=== PATIENT | female | born 1945 | race Caucasian/White ===

== ENCOUNTER 2019-03-01 20:47 | Inpatient (IN) | payer MEDICARE, OTHER ==
[~2019-03-01] VITALS: Ht 165.1 cm; Wt 71.7 kg
--- NOTE | 2019-03-01 21:30 | NUR ---
Dr. Adams at bedside for MSE.
[2019-03-01] MEDS ORDERED: IV NORMAL SALINE 1000 ML BAG IV ONE (21:45)
[2019-03-01 21:59] LABS: *BILIRUBIN,URIN NEGATIVE (NEGATIVE); *BLOOD, URINE NEGATIVE (NEGATIVE); *CLARITY,URINE SLIGHTLY CLOUDY (CLEAR); *KETONES,URINE 1+ (NEGATIVE); LEUKOCYTE ESTERASE ,URINE NEGATIVE (NEGATIVE); NITRITE, URINE POSITIVE (NEGATIVE); PH,URINE 5.5 (5.0-8.0); UGLUCOSE NEGATIVE (NEGATIVE)
[2019-03-01 22:03] LABS: BASOPHILS # (AUTO) 0.1 K/uL (0.0-8.0); BASOPHILS % (AUTO) 0.8 % (0.0-2.0); EOSINOPHILS # (AUTO) 0.1 K/uL (0.0-0.7); EOSINOPHILS % (AUTO) 0.9 % (0.0-7.0); HEMATOCRIT 42.6 % (31.2-41.9); LYMPHOCYTES # (AUTO) 1.5 K/uL (20.0-40.0); LYMPHOCYTES % (AUTO) 14.4 % (20.5-51.5); MEAN CORPUSCULAR HGB CONC 33 g/dL (32.3-35.6); MEAN CORPUSCULAR VOLUME 87.9 fL (75.5-95.3); MONOCYTES # (AUTO) 0.8 K/uL (2.0-10.0); MONOCYTES % (AUTO) 7.4 % (0.0-11.0); NEUTROPHILS # (AUTO) 8.2 K/uL (1.8-8.9); NEUTROPHILS % (AUTO) 76.5 % (38.5-71.5); PLATELET COUNT (AUTO) 232 K/uL (179-408); RED BLOOD CELL COUNT(AUTO) 4.84 MIL/uL (3.63-4.92); WHITE BLOOD COUNT (AUTO) 10.7 K/uL (3.8-11.8)
[2019-03-01 22:09] LABS: *COLOR,URINE DARK YELLOW (YELLOW)
[2019-03-01 22:10] LABS: CREATININE 0.7 mg/dL (0.6-1.3); POTASSIUM 3.6 mmol/L (3.5-5.1)
--- NOTE | 2019-03-01 22:10 | NUR ---
Pt out of ER for CT.
[2019-03-01 22:11] LABS: BACTERIA,URINE MANY /HPF (NONE SEEN); MUCUS,URINE MODERATE /LPF (0-FEW); SQUAMOUS EPITHELIAL CELL,UR FEW /HPF (NONE SEEN)
[2019-03-01 22:16] LABS: BILIRUBIN,DIRECT 0.2 mg/dL (0.0-0.2); BILIRUBIN,TOTAL 0.9 mg/dL (0.2-1.0); TOTAL PROTEIN, SERUM 8.1 g/dL (6.4-8.2)
--- NOTE | 2019-03-01 22:21 | NUR ---
Pt back to ER from CT.
--- NOTE | 2019-03-01 23:31 | NUR ---
Report given to Jefe SUE Tele.
[2019-03-01] MEDS ORDERED: MAGN400O6 PO (23:53)
[2019-03-01] MEDS ORDERED: NA P133E4 RC (23:53)
[2019-03-01] MEDS ORDERED: METF-440 PO (23:53)
[2019-03-01] MEDS ORDERED: GALA4TAB23 PO (23:53)
[2019-03-01] MEDS ORDERED: ACET325T53 PO (23:53)
[2019-03-01] MEDS ORDERED: CHOL10002 PO (23:53)
[2019-03-01] MEDS ORDERED: BISA10SU61 RC (23:53)
[2019-03-01] MEDS ORDERED: UBID100T7 PO (23:53)
[2019-03-01] MEDS ORDERED: ATOR10TA PO (23:53)
[2019-03-01] MEDS ORDERED: CARB1CAP3 PO (23:53)
[2019-03-01] MEDS ORDERED: CRAN450T9 PO (23:53)
[2019-03-01] MEDS ORDERED: ACET-2154 PO (23:53)
[2019-03-01] MEDS ORDERED: MULT-1188 PO (23:53)
[2019-03-01] MEDS ORDERED: OMEG10006 PO (23:53)
[2019-03-01] MEDS ORDERED: ACET-73 PO (23:53)
[2019-03-01] MEDS ORDERED: VENL37.510 PO (23:53)
[2019-03-02] MEDS ORDERED: DEXTROSE 50% 50 ML DISP.SYRIN IV PRN (00:30)
[2019-03-02] MEDS ORDERED: ONDANSETRON 4 MG/2 ML VIAL IV PRN (00:30)
[2019-03-02] MEDS ORDERED: INSULIN REGULAR, HUMAN 300 UNIT/3 ML VIAL SQ PRN (00:30)
[2019-03-02] MEDS: IV 1/2NS 1000 ML 1,000 ML IV PRN ×2 (00:45→17:42)
--- NOTE | 2019-03-02 01:00 | NUR ---
Pt transported from ER via gurney, accompanied by nurse at around 0020. All belongings noted and accounted for. Pt is in fairly stable condition, verbally responsive but non coherent responses. Slightly anxious but easily reassured and redirected. Physical assessment done, admission orders noted and carried out at this time. Admission process started and finished at this time. IVF running as ordered on R forearm, DVT pumps started. VS taken, temperature slightly elevated 99.5. Cooling measures started. Started on tele sinus rhythm 71 with occasional PVCs. Will continue to monitor.
[2019-03-02 01:52] VITALS: BP 141/67
[2019-03-02] MEDS: ACETAMINOPHEN 325 MG TABLET PO PRN ×2 (02:45→14:19)
--- NOTE | 2019-03-02 02:45 | NUR ---
Temperature rechecked: 100.4. Tylenol given as ordered, and cooling measures continued.
--- NOTE | 2019-03-02 03:30 | NUR ---
Temp rechecked: temperature dropped to 99.3. Cooling measures continued. Will continue to monitor. No signs of any acute distress.
--- NOTE | 2019-03-02 05:00 | NUR ---
Temp rechecked: 98.5. Placed patient in comfortable situation.
[2019-03-02 06:27] VITALS: BP 104/65
[2019-03-02] MEDS: PANTOPRAZOLE SODIUM 40 MG TABLET.DR PO SCH (06:40)
[2019-03-02] MEDS: BLOOD SUGAR DIAGNOSTIC 1 EACH STRIP VI SCH ×2 (06:41→11:33)
[2019-03-02 06:48] LABS: BASOPHILS % (AUTO) 0.4 % (0.0-2.0); EOSINOPHILS % (AUTO) 0.5 % (0.0-7.0); HEMATOCRIT 39.9 % (31.2-41.9); LYMPHOCYTES # (AUTO) 1.4 K/uL (20.0-40.0); LYMPHOCYTES % (AUTO) 14.3 % (20.5-51.5); MEAN CORPUSCULAR HEMOGLOBIN 29.3 uug (24.7-32.8); MEAN CORPUSCULAR HGB CONC 33 g/dL (32.3-35.6); MEAN CORPUSCULAR VOLUME 89.8 fL (75.5-95.3); MONOCYTES # (AUTO) 0.6 K/uL (2.0-10.0); MONOCYTES % (AUTO) 5.9 % (0.0-11.0); NEUTROPHILS # (AUTO) 7.5 K/uL (1.8-8.9); NEUTROPHILS % (AUTO) 78.9 % (38.5-71.5); PLATELET COUNT (AUTO) 196 K/uL (179-408); RED BLOOD CELL COUNT(AUTO) 4.45 MIL/uL (3.63-4.92); WHITE BLOOD COUNT (AUTO) 9.5 K/uL (3.8-11.8)
--- NOTE | 2019-03-02 06:54 | NUR ---
No further events overnight. Sinus rhythm on tele with PVCs 71. Pt in stable condition. Kept comfortable in bed. Needs attended. Fall precautions maintained. Good perineal care provided. Will endorse accordingly.
[2019-03-02 07:02] LABS: BILIRUBIN,TOTAL 1.1 mg/dL (0.2-1.0); CREATININE 0.6 mg/dL (0.6-1.3); PHOSPHOROUS 2.4 mg/dL (2.5-4.9); POTASSIUM 2.9 mmol/L (3.5-5.1); TOTAL PROTEIN, SERUM 7.3 g/dL (6.4-8.2)
[2019-03-02 07:14] LABS: THYROID STIMULATING HORMONE 2.374 mIU/mL (0.358-3.740)
[2019-03-02] MEDS: Z GUARD REMEDY PASTE 57 GM TUBE TOP SCH ×2 (09:00→21:06)
--- NOTE | 2019-03-02 09:00 | NUR ---
RECEIVED IN BED AWAKE MAKES GOOD EYE CONTACT BUT UNABLE TO MAKE NEEDS KNOWN TURNED AND REPOSITIONED Q2H REMAIN ON IVF ORDERED WITH NO S/S OF INFILTERATION ON SITE TELE IS SR WITH NO ECTOPY AT THIS TIME AFEBRILE MADE COMFORTABLE WILL CONTINUE TO OBSERVE.
[2019-03-02 11:49] VITALS: BP 141/81
[2019-03-02] MEDS: POTASSIUM PHOSPHATE MM 7.5 MMOL in IV DEXTROSE 5% 100 ML IV SCH ×2 (12:25→16:20)
[2019-03-02] MEDS ORDERED: FLEET ENEMA 133 ML BOTTLE RC PRN (12:45)
[2019-03-02] MEDS ORDERED: BISACODYL 10 MG SUPP.RECT RC PRN (12:45)
[2019-03-02] MEDS ORDERED: MAGNESIUM HYDROXIDE 30 ML LIQUID UDC PO PRN (12:45)
[2019-03-02] MEDS ORDERED: LEVODOPA PO SCH (13:00)
[2019-03-02] MEDS ORDERED: CARBIDOPA PO SCH (13:00)
[2019-03-02] MEDS ORDERED: [UNRECOGNIZED DRUG - OTHER] PO SCH (13:00)
--- NOTE | 2019-03-02 14:19 | NUR ---
PATIENT NOTED TO BE MOANING MAKING LOUD NOISES CONFUSED AND DISORIENTED UNABLE TO RELATE NEEDS PATIENTS SON IS AT THE BEDSIDE AND STATED THAT PATIENT IS LIKE THIS IN THE PENITENTIARY BUT ANY WAYS I WENT AHEAD AND GAVE HER TYLENOL TURNED AND REPOSITIONED HER MADE HER IN PROGRESS COMFORTABLE WILL CONTINUE TO OBSERVE KPHOS ORDERED WITH NO ADVERSE OR ALLERGIC REACTIONS AT THIS TIME.WILL CONTINUE TO OBSERVE.
[2019-03-02] MEDS: CEFTRIAXONE 1 G in IV DEXTROSE 5% 50 ML IV SCH (15:42)
[2019-03-02 16:10] VITALS: BP 111/62
[2019-03-02] MEDS: CHOLECALCIFEROL 1,000 UNIT TABLET PO SCH (16:20)
[2019-03-02] MEDS: GALANTAMINE 4 MG TABLET PO SCH (16:28)
--- NOTE | 2019-03-02 20:00 | NUR ---
RECEIVED PATIENT ASLEEP IN BED. AROUSABLE TO NAME BUT QUICKLY FALLS BACK ASLEEP. NO S/S OF PAIN OR DISCOMFORT. NO FACIAL GRIMACE NOTED. NO RESP. DISTRESS NOTED. IVF INFUSING WELL TO RIGHT FA #20 GAUGE. VS WNL. ON TELE SR WITH OCCASIONAL PVC'S AND VENTRICULAR BIGEMINY. ON AIR MATTRESS. BED ALARM ON. CALL LIGHT IN REACH. ALL NEEDS ATTENDED. WILL CONTINUE TO MONITOR AND ASSESS.
[2019-03-02 20:25] VITALS: BP 93/47
[2019-03-02] MEDS: LEVODOPA PO SCH (21:00)
[2019-03-02] MEDS: CARBIDOPA PO SCH (21:00)
[2019-03-02] MEDS: [UNRECOGNIZED DRUG - OTHER] PO SCH (21:00)
[2019-03-02] MEDS: ATORVASTATIN 10 MG TABLET PO SCH (21:00)
--- NOTE | 2019-03-02 21:00 | NUR ---
UNABLE TO GIVE PATIENT PO MEDS. PATIENT IS EASILY AROUSABLE BUT QUICKLY FALLS BACK ASLEEP. [employer] NOTIFIED.
[2019-03-03 00:15] VITALS: BP 142/40
[2019-03-03 04:00] VITALS: BP 132/51
[2019-03-03] MEDS: PANTOPRAZOLE SODIUM 40 MG TABLET.DR PO SCH (05:50)
--- NOTE | 2019-03-03 05:50 | NUR ---
PATIENT AWAKE IN BED. REPOSITIONED TO SIDE. MOUTH CARE PROVIDED. ATTEMTED TO GIVE PATIENT SMALL AMOUNT WATER, THICKENED. PATIENT KEPT THICKENED WATER IN MOUTH AND WAS UNABLE TO SWALLOW OR COMPREHEND TO TO SWALLOW WHEN DIRECTED. UNABLE TO FOLLOW DIRECTIONS. ALL NEEDS ATTENDED. WILL CONTINUE TO MONITOR AND ASSESS.
[2019-03-03] MEDS: METFORMIN HCL 500 MG TABLET PO SCH (08:00)
[2019-03-03] MEDS: CARBIDOPA PO SCH ×4 (08:00→21:00)
[2019-03-03] MEDS: LEVODOPA PO SCH ×4 (08:00→21:00)
[2019-03-03] MEDS: [UNRECOGNIZED DRUG - OTHER] PO SCH ×4 (08:00→21:00)
[2019-03-03] MEDS: GALANTAMINE 4 MG TABLET PO SCH ×2 (09:00→16:02)
[2019-03-03] MEDS: OMEGA-3 FATTY ACIDS/FISH OIL CAPSULE PO SCH (09:00)
[2019-03-03] MEDS: CHOLECALCIFEROL 1,000 UNIT TABLET PO SCH ×2 (09:00→16:02)
[2019-03-03] MEDS ORDERED: Medication Not On Formulary EA (Omega-3 Fatty Acids (Omega-3) 1,000 MG) PO SCH (09:00)
--- NOTE | 2019-03-03 09:00 | NUR ---
AM MEDICATIONS NOT GIVEN PATIENT DUE TO THE FACT THAT PATIENT IS UNABLE TO SWALLOW KEEPS FOOD AND FLUID IN HER MOUTH WITH ABSENCE OF GAG REFLEX WILL CONTINUE TO OBSERVE AND INFORM MD
[2019-03-03] MEDS: Z GUARD REMEDY PASTE 57 GM TUBE TOP SCH ×2 (09:28→21:19)
--- NOTE | 2019-03-03 09:57 | NUR ---
PATIENT TAKEN BY BED TO RADIOLOGY DEPT FOR CT HEAD ORDERED AND BACK TO HER ROOM AT THIS TIME.
[2019-03-03] MEDS: MULTIVIT, IRON, MIN NO. 8, FA TABLET PO SCH (10:57)
[2019-03-03 11:10] VITALS: BP 136/50
--- NOTE | 2019-03-03 11:17 | NUR ---
PATIENT CONTINUES TO HAVE DIFFICULTY SWALLOWING SO MEDICATIONS HELD DR YARBROUGH AWARE.
[2019-03-03] MEDS: IV 1/2NS 1000 ML 1,000 ML IV PRN (13:01)
[2019-03-03] MEDS: CEFTRIAXONE 1 G in IV DEXTROSE 5% 50 ML IV SCH (13:22)
[2019-03-03 15:45] VITALS: BP 137/70
--- NOTE | 2019-03-03 16:03 | NUR ---
PATIENT CONTINUES TO BE UNABLE TO SWALLOW OPENS EYES WHEN TOUCHED BUT IS CONFUSED AND DISORIENTED AND UNABLE TO MAKE NEEDS KNOWN ALL ORAL MEDICATIONS HELD AT THIS TIME AND MD IS AWARE SWALLOW EVAL ORDERED.
[2019-03-03 20:00] VITALS: BP 128/66
[2019-03-03] MEDS: ATORVASTATIN 10 MG TABLET PO SCH (21:00)
--- NOTE | 2019-03-03 21:30 | NUR ---
ORAL MEDS NOT GIVEN; FAILED NURSING BEDSIDE SWALLOW TEST. PT WILL SWALLOW EVAL WITH SPEECH THERAPIST TOMORROW
[2019-03-04] VITALS: BP 107/65
[2019-03-04] MEDS: IV 1/2NS 1000 ML 1,000 ML IV PRN ×2 (04:18→21:38)
[2019-03-04 04:30] VITALS: BP 116/56
[2019-03-04 06:50] LABS: BASOPHILS % (AUTO) 0.5 % (0.0-2.0); EOSINOPHILS # (AUTO) 0.1 K/uL (0.0-0.7); EOSINOPHILS % (AUTO) 1.6 % (0.0-7.0); HEMATOCRIT 38.7 % (31.2-41.9); HEMOGLOBIN 12.5 g/dL (10.9-14.3); LYMPHOCYTES # (AUTO) 1.8 K/uL (20.0-40.0); LYMPHOCYTES % (AUTO) 21.6 % (20.5-51.5); MEAN CORPUSCULAR HEMOGLOBIN 28.8 uug (24.7-32.8); MEAN CORPUSCULAR HGB CONC 32 g/dL (32.3-35.6); MEAN CORPUSCULAR VOLUME 89.3 fL (75.5-95.3); MONOCYTES # (AUTO) 0.7 K/uL (2.0-10.0); MONOCYTES % (AUTO) 8.3 % (0.0-11.0); NEUTROPHILS # (AUTO) 5.6 K/uL (1.8-8.9); PLATELET COUNT (AUTO) 192 K/uL (179-408); RED BLOOD CELL COUNT(AUTO) 4.33 MIL/uL (3.63-4.92); WHITE BLOOD COUNT (AUTO) 8.3 K/uL (3.8-11.8)
[2019-03-04 06:54] LABS: CREATININE 0.6 mg/dL (0.6-1.3); PHOSPHOROUS 2.9 mg/dL (2.5-4.9)
--- NOTE | 2019-03-04 06:58 | NUR ---
PT RESTED WELL IN BETWEEN CARE; NO ACUTE DISTRESS; INCONTINENCE CARE DONE; REPOSITIONED Q2H; PT HAD A BIG BM; SAFETY MAINTAINED; CONTINUE TO MONITOR; CONTINUE PLAN OF CARE.
[2019-03-04] MEDS: PANTOPRAZOLE SODIUM 40 MG TABLET.DR PO SCH (07:00)
--- NOTE | 2019-03-04 07:15 | NUR ---
RECEIVED IN BED ASLEEP WITH EYES CLOSED OPENS EYES WHEN TOUCHED BUT IS UNABLE TO VERBALISE CONFUSED AND DISORIENTED AT THIS TIME ALL NEEDS ANTICIPATED AND SATISFIED TOTALLY DEPENDENT FOR ALL ADL ON ROOM AIR WITH NO SHORTNESS OF BREATH TURNED AND REPOSITIONED Q2H MADE COMFORTABLE AND WILL CONTINUE TO OBSERVE AND PROVIDE SAFE AND THERAPEUTIC ENVIRONMENT AT ALL TIMES.
[2019-03-04] MEDS: LEVODOPA PO SCH ×4 (08:00→20:44)
[2019-03-04] MEDS: METFORMIN HCL 500 MG TABLET PO SCH (08:00)
[2019-03-04] MEDS: [UNRECOGNIZED DRUG - OTHER] PO SCH ×4 (08:00→20:44)
[2019-03-04] MEDS: CARBIDOPA PO SCH ×4 (08:00→20:44)
[2019-03-04] MEDS: Z GUARD REMEDY PASTE 57 GM TUBE TOP SCH ×2 (08:08→21:25)
[2019-03-04] MEDS: CHOLECALCIFEROL 1,000 UNIT TABLET PO SCH ×2 (08:08→16:14)
[2019-03-04] MEDS: GALANTAMINE 4 MG TABLET PO SCH ×2 (08:08→16:14)
[2019-03-04] MEDS: OMEGA-3 FATTY ACIDS/FISH OIL CAPSULE PO SCH (08:08)
--- NOTE | 2019-03-04 08:08 | NUR ---
PATIENT IS STILL NOT SWALLOWING WHEN APPLE SAUCE IN PLACED INTO HER MOUTH HAS ABSENCE OF GAG REFLEX UNABLE TO SWALLOW SO MEDICATIONS HELD AT THIS TIME
[2019-03-04] MEDS: MULTIVIT, IRON, MIN NO. 8, FA TABLET PO SCH (10:22)
[2019-03-04] MEDS: POTASSIUM CHLORIDE 50 ML IV SCH ×2 (10:54→12:00)
[2019-03-04 11:30] VITALS: BP 115/61
[2019-03-04] MEDS: ACETAMINOPHEN 650 MG SUPP.RECT RC PRN ×2 (11:34→21:47)
--- NOTE | 2019-03-04 11:39 | NUR ---
IV SITE INFILTERATED REMOVED AND RESTARTED AT LEFT HAND GAUGE 20 WITH ONE ATTEMPT CONTINUE ON POTASSIUM ORDERED LEVEL TODAY IS 3.0 PATIENT MEDICATED WITH TYLENOL PATIENT IS MOANING RESTLESS TURNED AND REPOSITIONED PATIENT IS AWAKE ANS IS UNABLE TO MAKE HER NEEDS KNOWN AND UNABLE TO REDIRECT AT THIS TIME WILL CONTINUE TO OBSERVE
[2019-03-04] MEDS: CEFTRIAXONE 1 G in IV DEXTROSE 5% 50 ML IV SCH (13:26)
--- NOTE | 2019-03-04 13:29 | NUR ---
WOUND CARE CONSULT: PT PRESENTS WITH RASH TO BUTTOCKS, PRESENT ON ADMISSION. RECOMMENDATIONS MADE FOR SKIN CARE AND PROTECTION. DISCUSSED WITH NURSING STAFF. WILL SEE PRN. PT ON FIRST STEP [facility]. CURRENT MARIFER SCORE IS 12. Addendum: 03/04/19 at 1330 by MITESH AVALOS RN Amended: Links added.
--- NOTE | 2019-03-04 14:00 | NUR ---
PATIENT SEEN AND EXAMINED BY SLT FOR SWALLOW EVAL AND SHE STATED THAT PATIENT IS NOT ABLE TO SWALLOW AT RISKS FOR ASPIRATION AT THIS TIME DR YARBROUGH NOTIFIED
[2019-03-04 16:00] VITALS: BP 131/60
--- NOTE | 2019-03-04 16:16 | NUR ---
DR YARBROUGH HERE SEEN PATIENT PATIENTS SON WAS AT THE BEDSIDE MD SPOKE WITH HIM AT LENGTH AND EXPLAINED TO HIM THE PLAN OF CARE AND PATIENT BEING AT RISKS FOR ASPIRATION SO THE PLAN IS THAT DR CHIN WILL CALL THE GI DOCTOR FOR EVALUATION OF GT PLACEMENT THE SON STATED HE IS ON BOARD WILL CALL HIM FOR CONSCENT WHEN ORDER IS WRITTEN.
[2019-03-04] MEDS: CLOTRIMAZOLE 1% CREAM 30 GM TUBE TOP SCH (16:33)
--- NOTE | 2019-03-04 19:40 | NUR ---
RECEIVED PATIENT AWAKE IN BED. PATIENT NONVERBAL, AO X 1. IN NO DISTRESS OR PAIN AT THE MOMENT. PER DAY SHIFT NURSE, PATIENT IS TO BE NPO PER SPEECH THERAPIST, PATIENT FAILED SWALLOW EVAL. PATIENT WILL BE KEPT NPO. SAFETY PROTOCOLS IN PLACE. WILL CONTINUE TO MONITOR.
[2019-03-04 20:30] VITALS: BP 130/69
[2019-03-04] MEDS: ATORVASTATIN 10 MG TABLET PO SCH (20:44)
--- NOTE | 2019-03-04 21:10 | NUR ---
DR. PLASCENCIA CALLED RE: OBTAINING INFORMED CONSENT FOR PROCEDURE EGD WITH PEG TUBE PLACEMENT. PATIENT TO BE NPO AFTER MIDNIGHT. PATIENT TO UNDERGO PROCEDURE AT 0730 IN THE MORNING.
[2019-03-04] MEDS: LORAZEPAM 2 MG/1 ML VIAL IV PRN (22:59)
[2019-03-05] VITALS (7 sets, daily range): BP systolic 127–170; BP diastolic 61–75
--- NOTE | 2019-03-05 05:28 | NUR ---
PATIENT'S SON SANDEE CONTACTED RE: INFORMED CONSENT AROUND 2200 LAST NIGHT. CALLED SEVERAL TIMES AND LEFT VOICEMAIL. STILL NO CALL BACK. PHONE NUMBER IS .
[2019-03-05] MEDS: ACETAMINOPHEN 650 MG SUPP.RECT RC PRN (05:47)
[2019-03-05] MEDS: LORAZEPAM 2 MG/1 ML VIAL IV PRN ×3 (06:08→20:56)
[2019-03-05] MEDS: PANTOPRAZOLE SODIUM 40 MG TABLET.DR PO SCH (06:50)
[2019-03-05] MEDS ORDERED: FENTANYL CITRATE 100 MCG/2 ML AMPUL ONE (07:02)
--- NOTE | 2019-03-05 07:30 | NUR ---
PATIENT WAS PICKED UP BY BED AT THIS TIME TO OR FOR GT INSERTION ORDERED NO DISTRESS AT THIS TIME.
[2019-03-05] MEDS ORDERED: LIDOCAINE HCL-MPF 1% 5 ML VIAL ONE (07:39)
[2019-03-05] MEDS ORDERED: CEFAZOLIN 1 G VIAL IM ONE (07:54)
[2019-03-05] MEDS ORDERED: PROPOFOL 200 MG/20 ML BOTTLE IV ONE (07:54)
[2019-03-05] MEDS ORDERED: IV NORMAL SALINE 1000 ML BAG IV ONE (07:54)
[2019-03-05] MEDS ORDERED: IRR STERIL WATER FOR IRR 1000 ML BOTTLE IR ONE (07:54)
[2019-03-05] MEDS: METFORMIN HCL 500 MG TABLET PO SCH (08:00)
[2019-03-05] MEDS: [UNRECOGNIZED DRUG - OTHER] PO SCH ×4 (08:00→21:00)
[2019-03-05] MEDS: CARBIDOPA PO SCH ×4 (08:00→21:00)
[2019-03-05] MEDS: LEVODOPA PO SCH ×4 (08:00→21:00)
[2019-03-05] MEDS: OMEGA-3 FATTY ACIDS/FISH OIL CAPSULE PO SCH (08:18)
[2019-03-05] MEDS: Z GUARD REMEDY PASTE 57 GM TUBE TOP SCH ×2 (08:19→22:49)
[2019-03-05] MEDS: GALANTAMINE 4 MG TABLET PO SCH (08:19)
[2019-03-05] MEDS: CHOLECALCIFEROL 1,000 UNIT TABLET PO SCH (08:19)
[2019-03-05] MEDS: CLOTRIMAZOLE 1% CREAM 30 GM TUBE TOP SCH ×2 (08:19→16:48)
[2019-03-05] MEDS ORDERED: IV 1/2NS 1000 ML 1,000 ML IV PRN (08:30)
--- NOTE | 2019-03-05 08:45 | NUR ---
PATIENT RETURNED FROM PACU AWAKE ATTEMPTS TO TALK BUT IS UNCLEAR AND INCOHERENT ON ROOM AIR WITH NO SOB NOTED S/P GT INSERTION WITH ABD BINDER IN PLACE NO S/S OF BLEEDING AT THIS TIME IVF CHANGED TO NS ORDERED CAFE HELPER NOTIFIED RE NEED RECS ON TUBE FEEDING WILL CONTINUE TO OBSERVE.
[2019-03-05] MEDS: IV NS 1000 ML 1,000 ML IV PRN ×2 (08:57→15:02)
[2019-03-05] MEDS ORDERED: MAGNESIUM HYDROXIDE 30 ML LIQUID UDC GT PRN (09:11)
[2019-03-05 09:23] LABS: ALANINE AMINOTRANSFERASE 17 U/L (14-59); ALKALINE PHOSPHATASE 58 U/L (50-136); ASPARTATE AMINOTRANSFERASE 24 U/L (15-37); BILIRUBIN,TOTAL 0.7 mg/dL (0.2-1.0); CARBON DIOXIDE 25 mmol/L (21-32); CHLORIDE 105 mmol/L (98-107); CREATININE 0.6 mg/dL (0.6-1.3); GLUCOSE 64 mg/dL (74-106); MAGNESIUM 1.9 mg/dL (1.8-2.4); POTASSIUM 3.3 mmol/L (3.5-5.1); UREA NITROGEN, BLOOD 9 mg/dL (7-18)
[2019-03-05 09:31] LABS: BASOPHILS # (AUTO) 0.1 K/uL (0.0-8.0); BASOPHILS % (AUTO) 0.7 % (0.0-2.0); EOSINOPHILS # (AUTO) 0.2 K/uL (0.0-0.7); EOSINOPHILS % (AUTO) 3.3 % (0.0-7.0); HEMATOCRIT 40.3 % (31.2-41.9); LYMPHOCYTES # (AUTO) 1.2 K/uL (20.0-40.0); LYMPHOCYTES % (AUTO) 15.9 % (20.5-51.5); MEAN CORPUSCULAR HEMOGLOBIN 29.1 uug (24.7-32.8); MEAN CORPUSCULAR HGB CONC 32 g/dL (32.3-35.6); MEAN CORPUSCULAR VOLUME 89.9 fL (75.5-95.3); MONOCYTES # (AUTO) 0.5 K/uL (2.0-10.0); MONOCYTES % (AUTO) 6.3 % (0.0-11.0); NEUTROPHILS # (AUTO) 5.5 K/uL (1.8-8.9); NEUTROPHILS % (AUTO) 73.8 % (38.5-71.5); PLATELET COUNT (AUTO) 199 K/uL (179-408); RED BLOOD CELL COUNT(AUTO) 4.48 MIL/uL (3.63-4.92); WHITE BLOOD COUNT (AUTO) 7.5 K/uL (3.8-11.8)
[2019-03-05] MEDS: ACETAMINOPHEN 325 MG TABLET PO PRN ×2 (11:03→18:13)
[2019-03-05] MEDS: MULTIVIT, IRON, MIN NO. 8, FA TABLET GT SCH (11:03)
--- NOTE | 2019-03-05 12:10 | NUR ---
TUBE FEEDING RECS RECEIVED FROM THE [employer]RARY CLERK AND NOTED AWAITING FOR DIETARY TO SEND THE GLUCERNA.
[2019-03-05] MEDS: GLUCERNA 1.2 1000ML LIQUID GT PRN (12:39)
--- NOTE | 2019-03-05 13:07 | NUR ---
DR REJI MCCARTNEY HERE AWARE OF POTASSIUM LEVEL AT 3.3 WITH REPLACEMENT ORDER AND NOTED.
[2019-03-05] MEDS ORDERED: POTASSIUM CHLORIDE 20 MEQ POWDER PACKET GT ONE (13:15)
[2019-03-05] MEDS: CEFTRIAXONE 1 G in IV DEXTROSE 5% 50 ML IV SCH (13:30)
--- NOTE | 2019-03-05 13:41 | NUR ---
PATIENT IS VERY RESTLESS AND AGITATED MOANING AND MAKING LOUD NOISES TURNED AND REPOSITIONED UNABLE TO REDIRECT GT FEEDINGS IN PROGRESS AT 10 ML/HR NO NAUSEA OR VOMITING AT THIS TIME PATIENT GIVEN ATIVAN 0.5 MG ORDERED BUT INADVERTENTLY PUT 1 MG GIVEN AND ONE MG WASTED BUT 1.5 MG WAS WASTED CALLED THE PHARMACY NOTIFIED THEM AND THEY STATED UNABLE TO FIX IN THE PIXSIS THAT I SHOULD WRITE NOTES TO EXPLAIN WHAT HAPPENED
[2019-03-05] MEDS: CHOLECALCIFEROL 1,000 UNIT TABLET GT SCH (16:46)
[2019-03-05] MEDS: GALANTAMINE 4 MG TABLET GT SCH (16:47)
--- NOTE | 2019-03-05 18:14 | NUR ---
PATIENT IS MOANING RESTLESS UNABLE TO REDIRECT AND PATIENT IS UNABLE TO RELAY NEEDS MEDICATED WITH TYLENOL AT THIS TIME WILL OBSERVE GT FEEDING IN PROGRESS TOLERATING WELL.
[2019-03-05] MEDS ORDERED: ATORVASTATIN 10 MG TABLET GT SCH ×2 (21:00)
[2019-03-05] MEDS: ATORVASTATIN 20 MG TABLET GT SCH (21:00)
[2019-03-05] MEDS: METOPROLOL TARTRATE 25 MG TABLET GT SCH (22:00)
--- NOTE | 2019-03-05 22:00 | NUR ---
RECEIVED ORDER FOR METOPROLOL Q. [address] REJI MCCARTNEY REGARDING PATIENT'S HIGH BLOOD PRESSURE 170/68. HOWEVER, WHEN BLOOD PRESSURE WAS TAKEN PRIOR TO ADMINISTERING THE DRUG, BLOOD PRESSURE WAS NORMALIZED TO 122/79.
--- NOTE | 2019-03-05 22:30 | NUR ---
AILYN TAVERA NP, ORDERED FOR CTA BRAIN AND CTA CAROTIDS FOR THIS TIME. CONTACTED DR. MAN AND HE STATED TO HOLD OFF ON THE IMAGING, HE THINKS IT MIGHT NOT BE NECESSARY; HE WILL SPEAK WITH JOVANA TAVERA AND CLARIFY.
--- NOTE | 2019-03-05 23:30 | NUR ---
CONTACED DR. REJI MCCARTNEY REGARDING PAIN MEDICATION. PATIENT HAS INCONSOLABLE YELLS, SEEMINGLY TO BE FROM PAIN. [place] 5-325 Q 6 HRS ORDERED PER MD.
[2019-03-05] MEDS: HYDROCODONE/APAP 5-325MG TABLET GT PRN (23:37)
[2019-03-06] MEDS: HYDROCODONE/APAP 5-325MG TABLET GT PRN (05:00)
[2019-03-06] MEDS: IV NS 1000 ML 1,000 ML IV PRN (05:08)
[2019-03-06] MEDS: PANTOPRAZOLE ORAL SUSPENSION 40 MG SUSPDR.PKT GT SCH (06:03)
[2019-03-06 06:13] VITALS: BP 154/68
[2019-03-06] MEDS ORDERED: METFORMIN HCL 500 MG TABLET GT SCH (08:00)
[2019-03-06] MEDS: GALANTAMINE 4 MG TABLET GT SCH ×2 (08:02→16:07)
[2019-03-06] MEDS: [UNRECOGNIZED DRUG - OTHER] PO SCH ×4 (08:02→20:28)
[2019-03-06] MEDS: CARBIDOPA PO SCH ×4 (08:02→20:28)
[2019-03-06] MEDS: LEVODOPA PO SCH ×4 (08:02→20:28)
[2019-03-06] MEDS: OMEGA-3 FATTY ACIDS/FISH OIL CAPSULE GT SCH (08:03)
[2019-03-06] MEDS: CHOLECALCIFEROL 1,000 UNIT TABLET GT SCH ×2 (08:03→16:06)
[2019-03-06] MEDS: METOPROLOL TARTRATE 25 MG TABLET GT SCH ×2 (08:04→20:27)
[2019-03-06] MEDS: CLOTRIMAZOLE 1% CREAM 30 GM TUBE TOP SCH ×2 (08:04→16:07)
[2019-03-06] MEDS: Z GUARD REMEDY PASTE 57 GM TUBE TOP SCH ×2 (08:05→20:29)
[2019-03-06] MEDS ORDERED: IV NORMAL SALINE 250 ML IV ONE (10:00)
[2019-03-06] MEDS ORDERED: SWABABLE VALVE TRANSFER SET EA MC ONE (10:00)
[2019-03-06] MEDS ORDERED: IOHEXOL 350 100 ML INFUS..BTL ONE (10:00)
[2019-03-06 11:09] VITALS: BP 133/46
[2019-03-06] MEDS: MULTIVIT, IRON, MIN NO. 8, FA TABLET GT SCH (11:11)
[2019-03-06] MEDS: ACETAMINOPHEN 325 MG TABLET PO PRN (11:11)
[2019-03-06] MEDS: CEFTRIAXONE 1 G in IV DEXTROSE 5% 50 ML IV SCH (13:39)
[2019-03-06 15:03] VITALS: BP 102/52
--- NOTE | 2019-03-06 19:20 | NUR ---
Received patient lying in bed. Asleep, arouse to tactile stimuli. Non-verbal, only moans. No signs or symptoms of pain or SOB. Afebrile at this time GT feeding tolerating at this time. HOB elevated. Safety measure initiated. Continue to monitor.
[2019-03-06 20:00] VITALS: BP 100/50
[2019-03-06] MEDS: ATORVASTATIN 20 MG TABLET GT SCH (20:27)
[2019-03-07] MEDS: GLUCERNA 1.2 1000ML LIQUID GT PRN (02:10)
[2019-03-07 05:27] VITALS: BP 122/54
[2019-03-07] MEDS: ACETAMINOPHEN 325 MG TABLET PO PRN (05:55)
[2019-03-07] MEDS: PANTOPRAZOLE ORAL SUSPENSION 40 MG SUSPDR.PKT GT SCH (06:00)
--- NOTE | 2019-03-07 06:18 | NUR ---
Patient asleep, arouse to tactile stimuli, Opens her eyes and moans a little but mainly non-verbal. No signs or symptoms of pain or SOB. GT feeding and flushing tolerated well. HOB kept elevated. Safety measure maintained.
[2019-03-07 06:30] LABS: BASOPHILS % (AUTO) 0.2 % (0.0-2.0); EOSINOPHILS % (AUTO) 0.2 % (0.0-7.0); HEMATOCRIT 37.2 % (31.2-41.9); LYMPHOCYTES # (AUTO) 0.8 K/uL (20.0-40.0); LYMPHOCYTES % (AUTO) 4.5 % (20.5-51.5); MEAN CORPUSCULAR HEMOGLOBIN 28.8 uug (24.7-32.8); MEAN CORPUSCULAR HGB CONC 32 g/dL (32.3-35.6); MEAN CORPUSCULAR VOLUME 89.6 fL (75.5-95.3); MONOCYTES # (AUTO) 1.6 K/uL (2.0-10.0); MONOCYTES % (AUTO) 9.1 % (0.0-11.0); NEUTROPHILS # (AUTO) 15.6 K/uL (1.8-8.9); PLATELET COUNT (AUTO) 184 K/uL (179-408); RED BLOOD CELL COUNT(AUTO) 4.15 MIL/uL (3.63-4.92); WHITE BLOOD COUNT (AUTO) 18.1 K/uL (3.8-11.8)
[2019-03-07 06:35] LABS: CREATININE 0.7 mg/dL (0.6-1.3); POTASSIUM 3.6 mmol/L (3.5-5.1)
--- NOTE | 2019-03-07 07:30 | NUR ---
Received patient in bed, Non verbal. No signs of distress noted. No SOB. No signs of Pain/discomfort. Afebrile, 98.7F. Gtube intact and patent. Kept comfortable. Will continue to monitor.
[2019-03-07] MEDS: LEVODOPA PO SCH ×4 (08:07→21:14)
[2019-03-07] MEDS: CARBIDOPA PO SCH ×4 (08:07→21:14)
[2019-03-07] MEDS: [UNRECOGNIZED DRUG - OTHER] PO SCH ×4 (08:07→21:14)
[2019-03-07] MEDS: OMEGA-3 FATTY ACIDS/FISH OIL CAPSULE GT SCH (08:16)
[2019-03-07] MEDS: CHOLECALCIFEROL 1,000 UNIT TABLET GT SCH ×2 (08:16→16:38)
[2019-03-07] MEDS: GALANTAMINE 4 MG TABLET GT SCH ×2 (08:17→16:38)
[2019-03-07] MEDS: METOPROLOL TARTRATE 25 MG TABLET GT SCH ×2 (09:00→21:00)
[2019-03-07] MEDS: CLOTRIMAZOLE 1% CREAM 30 GM TUBE TOP SCH ×2 (09:17→17:01)
[2019-03-07] MEDS: Z GUARD REMEDY PASTE 57 GM TUBE TOP SCH ×2 (09:17→21:13)
[2019-03-07] MEDS: HYDROCODONE/APAP 5-325MG TABLET GT PRN ×2 (09:55→16:39)
[2019-03-07] MEDS: MULTIVIT, IRON, MIN NO. 8, FA TABLET GT SCH (11:03)
[2019-03-07 11:06] VITALS: BP 98/56
[2019-03-07] MEDS: CEFTRIAXONE 1 G in IV DEXTROSE 5% 50 ML IV SCH (13:45)
[2019-03-07 14:42] LABS: *BILIRUBIN,URIN 1+ (NEGATIVE); *BLOOD, URINE NEGATIVE (NEGATIVE); *COLOR,URINE AMBER (YELLOW); *KETONES,URINE TRACE (NEGATIVE); LEUKOCYTE ESTERASE ,URINE NEGATIVE (NEGATIVE); NITRITE, URINE NEGATIVE (NEGATIVE); UGLUCOSE NEGATIVE (NEGATIVE)
[2019-03-07 14:49] LABS: *CLARITY,URINE HAZY (CLEAR)
[2019-03-07 14:50] LABS: BACTERIA,URINE MODERATE /HPF (NONE SEEN); RBC,URINE 0-3 /HPF (0-3); SQUAMOUS EPITHELIAL CELL,UR MODERATE /HPF (NONE SEEN)
[2019-03-07 14:51] LABS: MUCUS,URINE MANY /LPF (0-FEW)
[2019-03-07 15:04] VITALS: BP 106/53
--- NOTE | 2019-03-07 18:37 | NUR ---
Patient in bed, open eyes. No signs of distress noted. No SOB. Pain medications given as ordered. GTube intact and patent, Gtube feeding tolerated well. No Nausea/vomiting noted. RP changed the Code status to DNR. kept clean and comfortable. Will endorse to oncoming Nurse.
[2019-03-07] MEDS: ATORVASTATIN 20 MG TABLET GT SCH (21:13)
[2019-03-07] MEDS ORDERED: VANCOMYCIN IV 1 G in PREMIXED 0 EACH IV SCH (21:15)
[2019-03-07] MEDS ORDERED: CEFEPIME HCL 1 G in IV DEXTROSE 5% 50 ML IV SCH (21:15)
[2019-03-07] MEDS ORDERED: CEFEPIME HCL 1 G VIAL ONE (22:55)
[2019-03-07] MEDS ORDERED: VANCOMYCIN 1000 MG VIAL ONE (22:55)
--- NOTE | 2019-03-08 | NUR ---
Received report from outgoing nurse around 8960. Pt is currently sleeping with no signs of distress. Sleeping, arousable but non verbal. Tube feeding ongoing at 60cc/hr. No signs of aspiration noted. Head kept elevated. Air Mattress in use, and working well. DVT pumps on. Pt turned and right side offloaded with pillow. Will continue to monitor.
[2019-03-08] MEDS: GLUCERNA 1.2 1000ML LIQUID GT PRN (02:01)
[2019-03-08 04:00] VITALS: BP 154/61
--- NOTE | 2019-03-08 04:00 | NUR ---
Glucerna 1.2 Feeding increased rate to 65cc/hr as ordered. No signs of aspiration noted. No residual volume noted.
[2019-03-08] MEDS: PANTOPRAZOLE ORAL SUSPENSION 40 MG SUSPDR.PKT GT SCH (06:18)
[2019-03-08 06:37] LABS: BASOPHILS # (AUTO) 0.1 K/uL (0.0-8.0); BASOPHILS % (AUTO) 0.4 % (0.0-2.0); CARBON DIOXIDE 29 mmol/L (21-32); CHLORIDE 102 mmol/L (98-107); CREATININE 0.5 mg/dL (0.6-1.3); EOSINOPHILS # (AUTO) 0.1 K/uL (0.0-0.7); EOSINOPHILS % (AUTO) 0.8 % (0.0-7.0); GLUCOSE 152 mg/dL (74-106); HEMATOCRIT 34.9 % (31.2-41.9); HEMOGLOBIN 11.6 g/dL (10.9-14.3); LYMPHOCYTES % (AUTO) 6.3 % (20.5-51.5); MEAN CORPUSCULAR HEMOGLOBIN 28.8 uug (24.7-32.8); MEAN CORPUSCULAR HGB CONC 33 g/dL (32.3-35.6); MEAN CORPUSCULAR VOLUME 86.4 fL (75.5-95.3); MONOCYTES % (AUTO) 6.6 % (0.0-11.0); NEUTROPHILS # (AUTO) 13.3 K/uL (1.8-8.9); NEUTROPHILS % (AUTO) 85.9 % (38.5-71.5); PLATELET COUNT (AUTO) 184 K/uL (179-408); POTASSIUM 3.8 mmol/L (3.5-5.1); RED BLOOD CELL COUNT(AUTO) 4.03 MIL/uL (3.63-4.92); UREA NITROGEN, BLOOD 13 mg/dL (7-18); WHITE BLOOD COUNT (AUTO) 15.5 K/uL (3.8-11.8)
[2019-03-08] MEDS: GALANTAMINE 4 MG TABLET GT SCH ×2 (08:17→16:52)
[2019-03-08] MEDS: CHOLECALCIFEROL 1,000 UNIT TABLET GT SCH ×2 (08:17→16:52)
[2019-03-08] MEDS: CARBIDOPA PO SCH ×4 (08:17→20:45)
[2019-03-08] MEDS: OMEGA-3 FATTY ACIDS/FISH OIL CAPSULE GT SCH (08:17)
[2019-03-08] MEDS: LEVODOPA PO SCH ×4 (08:17→20:45)
[2019-03-08] MEDS: [UNRECOGNIZED DRUG - OTHER] PO SCH ×4 (08:17→20:45)
[2019-03-08] MEDS: CEFEPIME HCL 1 G in IV DEXTROSE 5% 50 ML IV SCH ×2 (08:33→20:29)
[2019-03-08] MEDS: METOPROLOL TARTRATE 25 MG TABLET GT SCH ×2 (08:41→20:45)
[2019-03-08] MEDS: CLOTRIMAZOLE 1% CREAM 30 GM TUBE TOP SCH ×2 (08:49→16:53)
[2019-03-08] MEDS: Z GUARD REMEDY PASTE 57 GM TUBE TOP SCH ×2 (08:49→20:30)
--- NOTE | 2019-03-08 09:50 | NUR ---
CLINICAL PHARMACY NOTE: VANCOMYCIN PHARMACY TO DOSE Subjective: To start vancomycin in this 73 y/o female for indication of "documented infection" Objective: weight 71kg height 165cm BUN/Scr 13/0.5 wbc 15.5 temp 98.9 1gm vanco given 03/08 @ ~0000 Assessment/Plan As renal function appears stable, will start vancomycin regimen of 1gm q11hr for estimated trough of 15.7, second dose today at 1100. Will check trough before 4th scheduled dose (not ordered yet). Will follow
[2019-03-08] MEDS: VANCOMYCIN IV 1,000 MG in IV DEXTROSE 5% 250 ML IV SCH ×2 (11:28→21:34)
[2019-03-08] MEDS: MULTIVIT, IRON, MIN NO. 8, FA TABLET GT SCH (11:28)
[2019-03-08 11:29] VITALS: BP 131/61
--- NOTE | 2019-03-08 11:29 | NUR ---
pt is running fever 101.[address] pathak made aware per orders blood cs orders
[2019-03-08] MEDS: METFORMIN HCL 500 MG TABLET GT SCH (12:57)
[2019-03-08] MEDS: ACETAMINOPHEN 325 MG TABLET PO PRN ×2 (13:00→20:47)
--- NOTE | 2019-03-08 13:05 | NUR ---
pt is resting in her bed family is at bed side
[2019-03-08 15:24] VITALS: BP 118/64
[2019-03-08 19:47] VITALS: BP 109/61
--- NOTE | 2019-03-08 20:00 | NUR ---
RECEIVED PATIENT ASLEEP IN BED. AROUSABLE. ALERT TO SELF ONLY. NO S/S OF PAIN OR DISCOMFORT. ON O2 2.5L, NO RESP. DISTRESS NOTED. VSS. GT FEEDING INFUSING WELL. NO RESIDUAL NOTED. H/L INTACT AND PATENT. AFEBRILE. VS WNL. ON AIR MATTRESS. CALL LIGHT IN REACH. ALL NEEDS ATTENDED. WILL CONTINUE TO MONITOR AND ASSESS.
[2019-03-08] MEDS: ATORVASTATIN 20 MG TABLET GT SCH (20:45)
--- NOTE | 2019-03-08 21:00 | NUR ---
PIKE CATHETER INSERTED ORDERED PER NERA-HIMS CODER. UA AND CULTURE SENT ORDERED. ALL NEEDS ATTENDED.
[2019-03-08 21:36] LABS: *BILIRUBIN,URIN NEGATIVE (NEGATIVE); *CLARITY,URINE CLEAR (CLEAR); *KETONES,URINE NEGATIVE (NEGATIVE); *UROBILINOGEN,URINE 0.2 E.U./dl (NORMAL); LEUKOCYTE ESTERASE ,URINE NEGATIVE (NEGATIVE); NITRITE, URINE NEGATIVE (NEGATIVE); PH,URINE 5.5 (5.0-8.0); UGLUCOSE NEGATIVE (NEGATIVE)
[2019-03-08] MEDS: FLUCONAZOLE 100 MG TABLET PO SCH (21:36)
[2019-03-08 21:55] LABS: *BLOOD, URINE TRACE (NEGATIVE)
[2019-03-08 21:56] LABS: *COLOR,URINE LIGHT YELLOW (YELLOW); SQUAMOUS EPITHELIAL CELL,UR FEW /HPF (NONE SEEN); WBC,URINE 0-3 /HPF (0-3)
--- NOTE | 2019-03-08 23:00 | NUR ---
Received report from outgoing RN, patient stable. Feeding running as ordered. IV ATB running as ordered. Pt appears slightly anxious, noted with moaning. Able to redirect but does again. Will administer Ativan PRN. Rashaad-pharyngeal suctioning also done, whitish secretions very little amount. Pt responds to name, and touch. Also answers yes or no, but not fully verbal.
[2019-03-08] MEDS: LORAZEPAM 2 MG/1 ML VIAL IV PRN (23:30)
--- NOTE | 2019-03-09 02:00 | NUR ---
Haritha Mitchell PRIVATE CLIENT ADVISOR notified of patient's coughing episodes and continued on/off moaning. New orders received for breathing tx. Noted and carried out.
[2019-03-09] MEDS: IPRATROPIUM BROMIDE 0.5 MG/2.5 ML NEBU NEB PRN ×3 (02:45→14:52)
[2019-03-09] MEDS: ACETYLCYSTEINE 10% 4ML VIAL NEB SCH ×3 (02:45→14:51)
[2019-03-09] MEDS: ALBUTEROL SULFATE 2.5 MG/3 ML NEBU NEB PRN ×3 (02:45→14:52)
[2019-03-09 05:15] VITALS: BP 129/66
[2019-03-09] MEDS: PANTOPRAZOLE ORAL SUSPENSION 40 MG SUSPDR.PKT GT SCH (06:08)
--- NOTE | 2019-03-09 07:00 | NUR ---
Pt comfortable after 1x dose of Ativan, 1x breathing treatment of Mucomyst with Albuterol/Atrovent, and suctioning. No BM noted. Prune juice given via GT with AM meds, tolerated well. Urine output in yuen catheter is greater than 700cc since insertion. Clear urine. Endorsed accordingly.
--- NOTE | 2019-03-09 07:57 | NUR ---
Sleeping, appears comfortable. O2 at 2L/NC, HHN treatment given. On moderate high back rest.
--- NOTE | 2019-03-09 09:53 | NUR ---
CLINICAL PHARMACY NOTE: VANCOMYCIN PHARMACY TO DOSE Subjective: To continue vancomycin in this 73 y/o female for indication of "documented infection"(sepsis, HCAP per ID note) Objective: weight 71kg height 165cm BUN/Scr 13/0.5 (03/08) wbc 15.5(03/08) temp 98.3 Vancomycin trough today at 0830:11.1 Assessment/Plan Since Vancomycin trough is subtherapeutic, will increase dose to 1gram IV every 9 hrs(first dose today at 1000) and draw trough by 4th dose(not ordered yet) for expected trough around 15.7. Will monitor renal function to adjust the dose if needed.
[2019-03-09] MEDS: METFORMIN HCL 500 MG TABLET GT SCH (09:57)
[2019-03-09] MEDS: [UNRECOGNIZED DRUG - OTHER] PO SCH ×3 (09:57→17:35)
[2019-03-09] MEDS: CARBIDOPA PO SCH ×3 (09:57→17:35)
[2019-03-09] MEDS: LEVODOPA PO SCH ×3 (09:57→17:35)
[2019-03-09] MEDS: OMEGA-3 FATTY ACIDS/FISH OIL CAPSULE GT SCH (09:58)
[2019-03-09] MEDS: METOPROLOL TARTRATE 25 MG TABLET GT SCH (09:58)
[2019-03-09] MEDS: FLUCONAZOLE 100 MG TABLET PO SCH (09:59)
[2019-03-09] MEDS: CHOLECALCIFEROL 1,000 UNIT TABLET GT SCH ×2 (09:59→17:34)
[2019-03-09] MEDS: CEFEPIME HCL 1 G in IV DEXTROSE 5% 50 ML IV SCH (10:00)
[2019-03-09] MEDS: GALANTAMINE 4 MG TABLET GT SCH ×2 (10:00→17:34)
[2019-03-09] MEDS: Z GUARD REMEDY PASTE 57 GM TUBE TOP SCH (10:44)
[2019-03-09] MEDS: VANCOMYCIN IV 1,000 MG in IV DEXTROSE 5% 250 ML IV SCH ×2 (10:44→18:04)
[2019-03-09] MEDS: HYDROCODONE/APAP 5-325MG TABLET GT PRN ×2 (11:03→15:15)
[2019-03-09] MEDS: GLUCERNA 1.2 1000ML LIQUID GT PRN (11:11)
[2019-03-09 11:12] VITALS: BP 152/68
[2019-03-09] MEDS: CLOTRIMAZOLE 1% CREAM 30 GM TUBE TOP SCH ×2 (12:11→17:35)
[2019-03-09] MEDS: MULTIVIT, IRON, MIN NO. 8, FA TABLET GT SCH (12:12)
[2019-03-09] MEDS ORDERED: CLOT30CR24 TOP (13:55)
[2019-03-09] MEDS ORDERED: IPRA0.2S6 NEB (13:55)
[2019-03-09] MEDS ORDERED: PANT40SU2 GT (13:55)
[2019-03-09] MEDS ORDERED: Glucerna 1.2 GT (13:55)
[2019-03-09] MEDS ORDERED: VANC1PIG IV (13:55)
[2019-03-09] MEDS ORDERED: ALBU2.5V7 NEB (13:55)
[2019-03-09] MEDS ORDERED: METF-440 GT (13:55)
[2019-03-09] MEDS ORDERED: FLUC100T PO (13:55)
[2019-03-09] MEDS ORDERED: CEFE1PIG3 IV (13:55)
[2019-03-09 15:29] VITALS: BP 128/71
== END 2019-03-09 22:04 | DRG 871 ==
LOC: ER 20:47 → TELE3 23:57 → MEDSURG3 03-04 12:10
PROVIDERS: ADMIT Internal Medicine; ATTEND Internal Medicine
PROC: 0DH63UZ Insertion of Feeding Device into Stomach, Percutaneous Approach (ICD-10-PCS; principal; 2019-03-05)
PROC: 05HD33Z Insertion of Infusion Device into Right Cephalic Vein, Percutaneous Approach (ICD-10-PCS; 2019-03-09)
DX: A41.9 Sepsis, unspecified organism (principal); G92 Toxic encephalopathy; J18.9 Pneumonia, unspecified organism; I63.89 Other cerebral infarction; N39.0 Urinary tract infection, site not specified; D68.59 Other primary thrombophilia; G20 Parkinson's disease; F02.80 Dementia in other diseases classified elsewhere, unspecified severity, without behavioral disturbance, psychotic disturbance, mood disturbance, and anxiety; Z66 Do not resuscitate; I69.398 Other sequelae of cerebral infarction; G93.89 Other specified disorders of brain; R40.2242 Coma scale, best verbal response, confused conversation, at arrival to emergency department; R40.2362 Coma scale, best motor response, obeys commands, at arrival to emergency department; R40.2142 Coma scale, eyes open, spontaneous, at arrival to emergency department; E66.9 Obesity, unspecified; Z68.26 Body mass index [BMI] 26.0-26.9, adult; I67.2 Cerebral atherosclerosis; I25.10 Atherosclerotic heart disease of native coronary artery without angina pectoris; Z74.09 Other reduced mobility; E78.5 Hyperlipidemia, unspecified; Z86.011 Personal history of benign neoplasm of the brain; K21.9 Gastro-esophageal reflux disease without esophagitis; I70.91 Generalized atherosclerosis; I11.9 Hypertensive heart disease without heart failure; F32.9 Major depressive disorder, single episode, unspecified; E11.9 Type 2 diabetes mellitus without complications; Z79.84 Long term (current) use of oral hypoglycemic drugs; Z79.899 Other long term (current) drug therapy; Y95 Nosocomial condition; R13.10 Dysphagia, unspecified
CPT/HCPCS: 36415; 43761; 70030-TC; 70450; 70496; 71045; 83690; 83735; 84100; 84443; 85025; 85651; 85730; 86592; 87040; 87086; 93005; 93307; 93880; 94640; A4217; A4663; C1758; G0378; J0690; J0692; J0696; J1815; J2060; J3010; J3370; J3480; J3490; J3590; J7030; J7040; J7050; J7060; Q9967

== ENCOUNTER 2019-04-23 17:05 | Inpatient (IN) | payer MEDICARE, OTHER ==
[~2019-04-23] VITALS: Ht 165.1 cm; Wt 74.9 kg
[2019-04-23] MEDS ORDERED: ACETAMINOPHEN 650 MG/20.3 ML LIQUID UDC ONE (17:42)
[2019-04-23] MEDS ORDERED: ACETAMINOPHEN 160 MG/5 ML UDC PO ONE (17:45)
[2019-04-23 17:56] LABS: BASOPHILS # (AUTO) 0.1 K/uL (0.0-8.0); BASOPHILS % (AUTO) 0.5 % (0.0-2.0); EOSINOPHILS % (AUTO) 0.1 % (0.0-7.0); HEMATOCRIT 33.2 % (31.2-41.9); HEMOGLOBIN 10.7 g/dL (10.9-14.3); LYMPHOCYTES # (AUTO) 1.5 K/uL (20.0-40.0); LYMPHOCYTES % (AUTO) 12.3 % (20.5-51.5); MEAN CORPUSCULAR HEMOGLOBIN 27.7 uug (24.7-32.8); MEAN CORPUSCULAR HGB CONC 32 g/dL (32.3-35.6); MEAN CORPUSCULAR VOLUME 86.1 fL (75.5-95.3); MONOCYTES % (AUTO) 8.2 % (0.0-11.0); NEUTROPHILS # (AUTO) 9.3 K/uL (1.8-8.9); NEUTROPHILS % (AUTO) 78.9 % (38.5-71.5); PLATELET COUNT (AUTO) 242 K/uL (179-408); RED BLOOD CELL COUNT(AUTO) 3.86 MIL/uL (3.63-4.92); WHITE BLOOD COUNT (AUTO) 11.8 K/uL (3.8-11.8)
[2019-04-23] MEDS ORDERED: ALBUTEROL SULFATE 2.5 MG/3 ML NEBU NEB ONE ×2 (18:00→19:30)
[2019-04-23] MEDS ORDERED: IPRATROPIUM BROMIDE 0.5 MG/2.5 ML NEBU NEB ONE ×2 (18:00→19:30)
--- NOTE | 2019-04-23 18:00 | NUR ---
PATIENT BROUGHT IN VIA AMBULANCE. PATIENT HAD RIGHT HAND 22 GUAGE IV, PIKE, AND GT.
[2019-04-23 18:06] LABS: CARBON DIOXIDE 29 mmol/L (21-32); CHLORIDE 99 mmol/L (98-107); CREATININE 0.4 mg/dL (0.6-1.3); GLUCOSE 166 mg/dL (74-106); POTASSIUM 3.8 mmol/L (3.5-5.1); UREA NITROGEN, BLOOD 16 mg/dL (7-18)
[2019-04-23] MEDS ORDERED: IPRATROPIUM BROMIDE 0.5 MG/2.5 ML NEBU ONE ×2 (18:07→19:39)
[2019-04-23] MEDS ORDERED: ALBUTEROL SULFATE 2.5 MG/3 ML NEBU ONE ×2 (18:07→19:38)
[2019-04-23 18:11] LABS: ALANINE AMINOTRANSFERASE 13 U/L (14-59); ALKALINE PHOSPHATASE 39 U/L (50-136); ASPARTATE AMINOTRANSFERASE 12 U/L (15-37); BILIRUBIN,DIRECT 0.2 mg/dL (0.0-0.2); BILIRUBIN,TOTAL 0.5 mg/dL (0.2-1.0); TOTAL PROTEIN, SERUM 7.1 g/dL (6.4-8.2)
[2019-04-23] MEDS ORDERED: FUROSEMIDE 20 MG/2 ML VIAL IV ONE (18:30)
[2019-04-23] MEDS ORDERED: FUROSEMIDE 20 MG/2 ML VIAL ONE (18:37)
[2019-04-23] MEDS ORDERED: AZTREONAM 1 G VIAL ONE (18:59)
[2019-04-23] MEDS ORDERED: AZTREONAM 1 G VIAL IM ONE (19:00)
--- NOTE | 2019-04-23 19:30 | NUR ---
REPORT GIVEN TO
[2019-04-23] MEDS ORDERED: AZTREONAM 1 G VIAL IV ONE (19:45)
--- NOTE | 2019-04-23 19:55 | NUR ---
Collected urine sample from yuen catheter, sent to lab.
[2019-04-23 20:17] LABS: *BILIRUBIN,URIN NEGATIVE (NEGATIVE); *BLOOD, URINE NEGATIVE (NEGATIVE); *CLARITY,URINE CLEAR (CLEAR); *COLOR,URINE LIGHT YELLOW (YELLOW); *KETONES,URINE NEGATIVE (NEGATIVE); *UROBILINOGEN,URINE 0.2 E.U./dl (NORMAL); LEUKOCYTE ESTERASE ,URINE 1+ (NEGATIVE); NITRITE, URINE NEGATIVE (NEGATIVE); UGLUCOSE NEGATIVE (NEGATIVE)
--- NOTE | 2019-04-23 20:24 | NUR ---
Dr. Mays on panel call with Dr. Golden Dietrich.
[2019-04-23 20:36] LABS: RBC,URINE 0-3 /HPF (0-3); SQUAMOUS EPITHELIAL CELL,UR FEW /HPF (NONE SEEN)
--- NOTE | 2019-04-23 20:43 | NUR ---
Drained yuen bag out of 750 ml cloudy yellow urine.
[2019-04-23 21:00] VITALS: BP 116/65
--- NOTE | 2019-04-23 21:08 | NUR ---
Report given to Mai SUE Tele.
--- NOTE | 2019-04-23 21:30 | NUR ---
Admitted 73y/o Female under the care of Dr. Dietrich. Dx: CHF/UTI. Patient is A&Ox1, non verbal. Patient on O2 at 2lpm via NC saturating at 96-97%. Patient noted as mouth breather, w/ wheezing and crackles. Patient placed on Tele monitor w/ NSR. Admission protocol initiated. Body assessment done. Patient noted w/ GT and F/C Fr #16 intact and draining clear nico colored urine. Safety measures implemented. Call light in reach
[2019-04-23] MEDS ORDERED: BISACODYL 10 MG SUPP.RECT RC PRN (22:00)
[2019-04-23] MEDS ORDERED: FLEET ENEMA 133 ML BOTTLE RC PRN (22:00)
[2019-04-23] MEDS ORDERED: DEXTROSE 50% 50 ML DISP.SYRIN IV PRN (22:00)
[2019-04-23] MEDS ORDERED: Z GUARD REMEDY PASTE 57 GM TUBE TOP PRN (22:00)
[2019-04-23] MEDS ORDERED: CEFTRIAXONE 1 G in IV DEXTROSE 5% 50 ML IV SCH (22:00)
[2019-04-23] MEDS ORDERED: ALBUTEROL SULFATE 2.5 MG/3 ML NEBU NEB PRN (22:00)
[2019-04-23] MEDS ORDERED: ALBUTEROL SULFATE 1.25 MG/3 ML NEBU NEB PRN (22:00)
--- NOTE | 2019-04-23 22:30 | NUR ---
Patient seen by Dr. Dietrich w/ order may start GT feeding at midnight. Oral care provided and suction done.
[2019-04-23] MEDS ORDERED: CEFTRIAXONE 1 G VIAL ONE (23:48)
[2019-04-24] MEDS: BLOOD SUGAR DIAGNOSTIC 1 EACH STRIP VI SCH ×4 (00:19→18:12)
[2019-04-24] MEDS: INSULIN REGULAR, HUMAN 300 UNIT/3 ML VIAL SQ PRN ×3 (00:25→12:26)
[2019-04-24] MEDS: GLUCERNA 1.2 1000ML LIQUID GT PRN ×2 (00:26→21:33)
--- NOTE | 2019-04-24 00:30 | NUR ---
Patient started on GT feeding Glucerna 1.2 at 65ml/hr x 20hrs, tolerated well. No residuals noted. Will continue to monitor
[2019-04-24 04:15] VITALS: BP 122/63
[2019-04-24 06:20] LABS: BASOPHILS # (AUTO) 0.1 K/uL (0.0-8.0); BASOPHILS % (AUTO) 0.9 % (0.0-2.0); EOSINOPHILS # (AUTO) 0.2 K/uL (0.0-0.7); EOSINOPHILS % (AUTO) 2.1 % (0.0-7.0); HEMATOCRIT 31.9 % (31.2-41.9); HEMOGLOBIN 10.3 g/dL (10.9-14.3); LYMPHOCYTES # (AUTO) 1.3 K/uL (20.0-40.0); LYMPHOCYTES % (AUTO) 12.5 % (20.5-51.5); MEAN CORPUSCULAR HEMOGLOBIN 27.9 uug (24.7-32.8); MEAN CORPUSCULAR HGB CONC 32 g/dL (32.3-35.6); MEAN CORPUSCULAR VOLUME 86.6 fL (75.5-95.3); MONOCYTES # (AUTO) 0.7 K/uL (2.0-10.0); MONOCYTES % (AUTO) 6.5 % (0.0-11.0); NEUTROPHILS # (AUTO) 8.2 K/uL (1.8-8.9); PLATELET COUNT (AUTO) 219 K/uL (179-408); RED BLOOD CELL COUNT(AUTO) 3.69 MIL/uL (3.63-4.92); WHITE BLOOD COUNT (AUTO) 10.5 K/uL (3.8-11.8)
--- NOTE | 2019-04-24 06:20 | NUR ---
Patient slept mostly throughout this shift. Oral care provided. SR on Tele monitor. Turned and repositioned Q2. Will endorse accordingly
[2019-04-24 06:49] LABS: THYROID STIMULATING HORMONE 1.823 mIU/mL (0.358-3.740)
[2019-04-24 06:50] LABS: ALANINE AMINOTRANSFERASE 12 U/L (14-59); ALKALINE PHOSPHATASE 35 U/L (50-136); ASPARTATE AMINOTRANSFERASE 9 U/L (15-37); BILIRUBIN,TOTAL 0.6 mg/dL (0.2-1.0); CARBON DIOXIDE 31 mmol/L (21-32); CHLORIDE 98 mmol/L (98-107); CHOLESTEROL 143 mg/dL (<200); CREATININE 0.5 mg/dL (0.6-1.3); GLUCOSE 158 mg/dL (74-106); HDL CHOLESTEROL 42 mg/dL (40-60); MAGNESIUM 2.1 mg/dL (1.8-2.4); PHOSPHOROUS 2.6 mg/dL (2.5-4.9); POTASSIUM 3.2 mmol/L (3.5-5.1); TOTAL PROTEIN, SERUM 6.8 g/dL (6.4-8.2); TRIGLYCERIDES 61 MG/DL (30-150); UREA NITROGEN, BLOOD 19 mg/dL (7-18)
[2019-04-24] MEDS ORDERED: POTASSIUM CHLORIDE 20 MEQ POWDER PACKET GT ONE (08:45)
[2019-04-24] MEDS ORDERED: CARBIDOPA GT SCH (09:00)
[2019-04-24] MEDS ORDERED: FUROSEMIDE 20 MG/2 ML VIAL IV SCH (09:00)
[2019-04-24] MEDS ORDERED: LEVODOPA GT SCH (09:00)
[2019-04-24] MEDS ORDERED: [UNRECOGNIZED DRUG - OTHER] GT SCH (09:00)
[2019-04-24] MEDS: METFORMIN HCL 500 MG TABLET GT SCH (10:34)
[2019-04-24] MEDS: PANTOPRAZOLE ORAL SUSPENSION 40 MG SUSPDR.PKT GT SCH (10:34)
[2019-04-24] MEDS: CHOLECALCIFEROL 1,000 UNIT TABLET GT SCH ×2 (10:35→17:23)
[2019-04-24] MEDS: MULTIVIT, IRON, MIN NO. 8, FA TABLET GT SCH (10:35)
[2019-04-24] MEDS: VENLAFAXINE 25 MG TABLET GT SCH (11:37)
[2019-04-24 11:45] VITALS: BP 135/73
--- NOTE | 2019-04-24 11:47 | NUR ---
WOUND CARE CONSULT: PT PRESENTS WITH DRY LESION TO LEFT LOWER LIP/CORNER OF MOUTH, SKIN TEARS TO RT AND LEFT SIDE OF ABDOMEN AND RASH TO BREASTFOLDS AND TO BUTTOCKS WITH INCONTINENCE ASSOCIATED SKIN DAMAGE TO BUTTOCKS, ALL PRESENT ON ADMISSION. RECOMMENDATIONS MADE FOR SKIN PROTECTION AND WOUND CARE DISCUSSED WITH NURSING STAFF. DEFER TO MD FOR LESION ON LIP/CORNER OF MOUTH. DISCUSSED WITH BIGHT MAKER AND RN. RN TO DISCUSS WITH MD. FIRST STEP LOW AIRLOSS MATTRESS ORDERED. WILL SEE PRN. MD IN AGREEMENT WITH PLAN OF CARE. Addendum: 04/24/19 at 1150 by MITESH AVALOS RN Amended: Links added.
--- NOTE | 2019-04-24 12:53 | NUR ---
Pt received, assessed, no acute distress. Pt son visiting at bedside. Home medication Rytary received and given to pharmacy. Using hand squeezing method for communication Pt indicates no pain at this time. All due medications administered via GT. Placement checked, no residual. Feeding stopped from 8-13oo hr per routine from facility. Hancock catheter intact, draining clear yellow urine, care provided. Wound consult completed, new orders received regarding skin care management to BL under breasts, sacral/buttocks, and BL abdomen locations. Bed locked, SCD pumps applied, side rails up x2, heels offloading. All comfort and safety measures implemented at this time. Call light within reach. Will continue to monitor.
[2019-04-24] MEDS: RYTARY PO SCH ×3 (13:48→20:26)
[2019-04-24 16:05] VITALS: BP 107/56
[2019-04-24] MEDS: CLOTRIMAZOLE 1% CREAM 30 GM TUBE TOP SCH (17:22)
[2019-04-24] MEDS: CEFTRIAXONE 1 G in IV DEXTROSE 5% 50 ML IV SCH (20:26)
[2019-04-24] MEDS: ATORVASTATIN 10 MG TABLET GT SCH (20:26)
[2019-04-24] MEDS: ACETAMINOPHEN 325 MG TABLET GT PRN (20:35)
[2019-04-24 21:17] VITALS: BP 102/56
[2019-04-25] MEDS: BLOOD SUGAR DIAGNOSTIC 1 EACH STRIP VI SCH ×4 (00:37→17:10)
[2019-04-25 01:03] VITALS: BP 117/63
[2019-04-25 04:53] VITALS: BP 109/59
[2019-04-25] MEDS: INSULIN REGULAR, HUMAN 300 UNIT/3 ML VIAL SQ PRN (05:46)
[2019-04-25 06:30] LABS: BASOPHILS # (AUTO) 0.1 K/uL (0.0-8.0); BASOPHILS % (AUTO) 0.7 % (0.0-2.0); EOSINOPHILS # (AUTO) 0.3 K/uL (0.0-0.7); EOSINOPHILS % (AUTO) 3.5 % (0.0-7.0); HEMATOCRIT 32.4 % (31.2-41.9); HEMOGLOBIN 10.5 g/dL (10.9-14.3); LYMPHOCYTES # (AUTO) 1.1 K/uL (20.0-40.0); LYMPHOCYTES % (AUTO) 13.5 % (20.5-51.5); MEAN CORPUSCULAR HEMOGLOBIN 28.3 uug (24.7-32.8); MEAN CORPUSCULAR HGB CONC 33 g/dL (32.3-35.6); MEAN CORPUSCULAR VOLUME 87.1 fL (75.5-95.3); MONOCYTES # (AUTO) 0.4 K/uL (2.0-10.0); MONOCYTES % (AUTO) 5.1 % (0.0-11.0); NEUTROPHILS # (AUTO) 6.6 K/uL (1.8-8.9); NEUTROPHILS % (AUTO) 77.2 % (38.5-71.5); PLATELET COUNT (AUTO) 219 K/uL (179-408); RED BLOOD CELL COUNT(AUTO) 3.72 MIL/uL (3.63-4.92); WHITE BLOOD COUNT (AUTO) 8.5 K/uL (3.8-11.8)
[2019-04-25 06:49] LABS: ALANINE AMINOTRANSFERASE 15 U/L (14-59); ALKALINE PHOSPHATASE 41 U/L (50-136); ASPARTATE AMINOTRANSFERASE 15 U/L (15-37); BILIRUBIN,TOTAL 0.5 mg/dL (0.2-1.0); CARBON DIOXIDE 30 mmol/L (21-32); CHLORIDE 98 mmol/L (98-107); CREATININE 0.4 mg/dL (0.6-1.3); GLUCOSE 155 mg/dL (74-106); POTASSIUM 4.1 mmol/L (3.5-5.1); TOTAL PROTEIN, SERUM 6.8 g/dL (6.4-8.2); UREA NITROGEN, BLOOD 21 mg/dL (7-18)
--- NOTE | 2019-04-25 06:56 | NUR ---
Patient slept well. No SOB noted. IV site on R hand and RFA intact and patent. Oral care provided. Turned and repositioned Q2. On GT feeding Glucerna 1.2 at 65cc/hr, tolerated well w/ no residuals. F/C intact and draining clear yellow urine. All needs attended. Will endorse accordingly
--- NOTE | 2019-04-25 07:30 | NUR ---
Awake, confused, moaning. O2 at 2L/NC. On moderate high back rest. on G tube feedings.
--- NOTE | 2019-04-25 08:30 | NUR ---
Patient moaning, bed bath given. Nioted disimpacted stool. Manual disimpaction with large formed stool taken out. Repositioned in bed comfortably
[2019-04-25] MEDS ORDERED: FUROSEMIDE 20 MG TABLET PO SCH (09:00)
[2019-04-25] MEDS: VENLAFAXINE 25 MG TABLET GT SCH (09:24)
[2019-04-25] MEDS: CHOLECALCIFEROL 1,000 UNIT TABLET GT SCH ×2 (09:25→17:10)
[2019-04-25] MEDS: PANTOPRAZOLE ORAL SUSPENSION 40 MG SUSPDR.PKT GT SCH (09:25)
[2019-04-25] MEDS: MULTIVIT, IRON, MIN NO. 8, FA TABLET GT SCH (09:25)
[2019-04-25] MEDS: METFORMIN HCL 500 MG TABLET GT SCH (09:25)
[2019-04-25] MEDS: RYTARY PO SCH ×4 (09:26→20:26)
[2019-04-25] MEDS: ACETAMINOPHEN 325 MG TABLET GT PRN ×2 (09:27→17:13)
[2019-04-25] MEDS: CLOTRIMAZOLE 1% CREAM 30 GM TUBE TOP SCH ×2 (09:28→17:11)
[2019-04-25] MEDS ORDERED: FUROSEMIDE 20 MG/2 ML VIAL IV ONE (09:30)
[2019-04-25] MEDS: MORPHINE SULFATE 2 MG/1 ML DISP.SYRIN IV PRN ×2 (09:35→15:46)
--- NOTE | 2019-04-25 09:35 | NUR ---
Still moaning. Morphine IV given as ordered.
[2019-04-25 09:36] VITALS: BP 138/74
--- NOTE | 2019-04-25 10:30 | NUR ---
Secretions suctioned orally, oral care done.
--- NOTE | 2019-04-25 11:00 | NUR ---
Patient, resting, quiet.
[2019-04-25 11:45] VITALS: BP 124/72
--- NOTE | 2019-04-25 13:00 | NUR ---
Patient awake, quiet, comfortable. GT Feeding resumed.
--- NOTE | 2019-04-25 15:50 | NUR ---
Patient moaning, crying. Morphine IV given as ordered
[2019-04-25 16:17] VITALS: BP 101/62
--- NOTE | 2019-04-25 19:20 | NUR ---
Received patient lying in bed. Awake, able to make eye contact when spoken to, garbled speech. In no acute distress. No signs or symptoms of pain or SOB at this time. GT intact and patent. On O2 at 2LPM via NC in place. Safety measure initiated and call burleson within reached. Continue to monitor.
[2019-04-25 20:10] VITALS: BP 124/52
[2019-04-25] MEDS: ATORVASTATIN 10 MG TABLET GT SCH (20:26)
[2019-04-25] MEDS: GLUCERNA 1.2 1000ML LIQUID GT PRN (20:38)
[2019-04-25] MEDS: CEFTRIAXONE 1 G in IV DEXTROSE 5% 50 ML IV SCH (20:59)
[2019-04-26] MEDS: BLOOD SUGAR DIAGNOSTIC 1 EACH STRIP VI SCH ×2 (00:11→05:44)
[2019-04-26] MEDS: INSULIN REGULAR, HUMAN 300 UNIT/3 ML VIAL SQ PRN (00:13)
[2019-04-26 04:25] VITALS: BP 140/62
--- NOTE | 2019-04-26 06:06 | NUR ---
Patient slept well last night.In no acute distress. No signs or symptoms of pain or SOB. GT intact and patent. Gt feeding and flushing well tolerated. O2 at 2LPM via NC in place. O2 sat at 99%.IV on right hand and right FA intact and patent. No adverse reaction noted from IV ABX. Hancock catheter intact and draining via gravity. Safety measure maintained and call burleson within reached. Continue to monitor.
[2019-04-26 06:27] LABS: BASOPHILS # (AUTO) 0.1 K/uL (0.0-8.0); BASOPHILS % (AUTO) 0.9 % (0.0-2.0); EOSINOPHILS # (AUTO) 0.3 K/uL (0.0-0.7); EOSINOPHILS % (AUTO) 3.9 % (0.0-7.0); HEMATOCRIT 32.2 % (31.2-41.9); HEMOGLOBIN 10.4 g/dL (10.9-14.3); LYMPHOCYTES # (AUTO) 1.2 K/uL (20.0-40.0); LYMPHOCYTES % (AUTO) 18.6 % (20.5-51.5); MEAN CORPUSCULAR HEMOGLOBIN 28.3 uug (24.7-32.8); MEAN CORPUSCULAR HGB CONC 32 g/dL (32.3-35.6); MEAN CORPUSCULAR VOLUME 87.7 fL (75.5-95.3); MONOCYTES # (AUTO) 0.4 K/uL (2.0-10.0); MONOCYTES % (AUTO) 6.4 % (0.0-11.0); NEUTROPHILS # (AUTO) 4.7 K/uL (1.8-8.9); NEUTROPHILS % (AUTO) 70.2 % (38.5-71.5); PLATELET COUNT (AUTO) 223 K/uL (179-408); RED BLOOD CELL COUNT(AUTO) 3.68 MIL/uL (3.63-4.92); WHITE BLOOD COUNT (AUTO) 6.7 K/uL (3.8-11.8)
[2019-04-26 06:39] LABS: CARBON DIOXIDE 33 mmol/L (21-32); CHLORIDE 106 mmol/L (98-107); CREATININE 0.4 mg/dL (0.6-1.3); GLUCOSE 126 mg/dL (74-106); MAGNESIUM 2.1 mg/dL (1.8-2.4); POTASSIUM 4.2 mmol/L (3.5-5.1); UREA NITROGEN, BLOOD 15 mg/dL (7-18)
[2019-04-26] MEDS: MORPHINE SULFATE 2 MG/1 ML DISP.SYRIN IV PRN ×2 (08:18→15:53)
[2019-04-26] MEDS: MULTIVIT, IRON, MIN NO. 8, FA TABLET GT SCH (08:25)
[2019-04-26] MEDS: FUROSEMIDE 20 MG TABLET GT SCH (08:26)
[2019-04-26] MEDS: PANTOPRAZOLE ORAL SUSPENSION 40 MG SUSPDR.PKT GT SCH (08:26)
[2019-04-26] MEDS: METFORMIN HCL 500 MG TABLET GT SCH (08:26)
[2019-04-26] MEDS: RYTARY PO SCH ×4 (08:26→20:20)
[2019-04-26] MEDS: CHOLECALCIFEROL 1,000 UNIT TABLET GT SCH ×2 (08:26→17:11)
[2019-04-26] MEDS: VENLAFAXINE 25 MG TABLET GT SCH (08:27)
[2019-04-26] MEDS: CLOTRIMAZOLE 1% CREAM 30 GM TUBE TOP SCH ×2 (08:27→17:12)
[2019-04-26 12:07] VITALS: BP 130/63
[2019-04-26 16:03] VITALS: BP 126/69
[2019-04-26] MEDS: GLUCERNA 1.2 1000ML LIQUID GT PRN (17:31)
--- NOTE | 2019-04-26 18:09 | NUR ---
Patient AAOx1. In no acute distress. Receiving 2L o2 NC and Glucerna 1.2 tube feeding as ordered. Patient moans and groans what appears as pain/discomfort. PRN Morphine administered x2; tolerated. Resting in bed comfortably at this time. No s/s of acute distress. Comfort provided at all times. Will endorse care accordingly.
--- NOTE | 2019-04-26 19:20 | NUR ---
Received patient lying in bed. Awake but non-verbal. In no apparent distress. No signs or symptoms of pain or SOB. GT intact and patent. GT feeding on going. On O2 at 2LPM via NC in place. Hancock catheter intact and draining via gravity. IV site on right hand and right FA intact and patent. Safety measure initiated and call burleson within reached.
[2019-04-26] MEDS: ATORVASTATIN 10 MG TABLET GT SCH (20:19)
[2019-04-26] MEDS: CEFTRIAXONE 1 G in IV DEXTROSE 5% 50 ML IV SCH (20:20)
[2019-04-26 20:30] VITALS: BP 110/50
[2019-04-27 04:10] VITALS: BP 125/66
[2019-04-27] MEDS: MORPHINE SULFATE 2 MG/1 ML DISP.SYRIN IV PRN (05:28)
--- NOTE | 2019-04-27 06:11 | NUR ---
Alert to self. Able to say clear 1-2 words at times. Mainly confused and disoriented. In no acute distress. No signs or symptoms of SOB. Morphine 1mg IV given for signs of pain and effective. GT intact and patent. Gt feeding and flushing well tolerated. O2 at 2LPM via NC in place. IV on right hand and right FA intact and patent. No adverse reaction noted from IV ABX. Hancock catheter intact and draining via gravity. Safety measure maintained.
--- NOTE | 2019-04-27 08:00 | NUR ---
RECEIVED PT RESTING IN BED. PT ON SPECIALTY MATTRESS. NO ACUTE DISTRESS NOTED. NO SOB NOTED. PT ON G TUBE FEEDING. BED LOCKED IN LOW POSITION. CALL LIGHT WITHIN REACH. WILL CONTINUE TO MONITOR FOR SAFETY AND COMFORT.
[2019-04-27] MEDS: METFORMIN HCL 500 MG TABLET GT SCH (10:11)
[2019-04-27] MEDS: FUROSEMIDE 20 MG TABLET GT SCH (10:11)
[2019-04-27] MEDS: MULTIVIT, IRON, MIN NO. 8, FA TABLET GT SCH (10:11)
[2019-04-27] MEDS: PANTOPRAZOLE ORAL SUSPENSION 40 MG SUSPDR.PKT GT SCH (10:12)
[2019-04-27] MEDS: CHOLECALCIFEROL 1,000 UNIT TABLET GT SCH (10:12)
[2019-04-27] MEDS: RYTARY PO SCH ×2 (10:15→13:55)
[2019-04-27] MEDS: VENLAFAXINE 25 MG TABLET GT SCH (10:15)
[2019-04-27 11:48] VITALS: BP 138/70
--- NOTE | 2019-04-27 13:00 | NUR ---
WOUND CARE DONE ORDERED. NO ACUTE DISTRESS NOTED. NO SOB NOTED. DISCHARGE ORDER RECEIVED. WILL PROCEED WITH DISCHARGE. PT APPEARS COMFORTABLE. WILL CONTINUE TO MONITOR.
[2019-04-27] MEDS: CLOTRIMAZOLE 1% CREAM 30 GM TUBE TOP SCH (13:36)
[2019-04-27] MEDS ORDERED: FUROSEMIDE 20 MG/2 ML VIAL IV ONE (14:15)
[2019-04-27 16:35] VITALS: BP 127/63
--- NOTE | 2019-04-27 17:15 | NUR ---
PT HAS BEEN DISCHARGED TO [facility] VIA AMBULANCE. BELONGINGS ON PT (ROSE NECKLACE AND CRUCIFIX) PT'S OWN MEDS RETURNED (GIVEN TO AMBULANCE STAFF TO GIVE TO ADMITTING STAFF). DISCHARGE INSTRUCTIONS AND MED LIST GIVEN TO AMBULANCE STAFF. PHONE REPORT GIVEN TO JASPAL SUE AT [facility]. IV LINES ON R F/A AND R HAND REMOVED INTACT. PT TRANSPORTED WITH PIKE CATHETER. PIKE EMPTIED WITH 800 CC. NO ACUTE DISTRESS OR SOB NOTED.
== END 2019-04-27 17:12 | DRG 871 ==
LOC: ER 17:06 → TELE3 21:14 → MEDSURG3 04-25 10:13
PROVIDERS: ADMIT Internal Medicine; ATTEND Internal Medicine
DX: A41.9 Sepsis, unspecified organism (principal); J69.0 Pneumonitis due to inhalation of food and vomit; J96.01 Acute respiratory failure with hypoxia; J96.91 Respiratory failure, unspecified with hypoxia; G92 Toxic encephalopathy; I50.33 Acute on chronic diastolic (congestive) heart failure; N39.0 Urinary tract infection, site not specified; D68.59 Other primary thrombophilia; I11.0 Hypertensive heart disease with heart failure; R65.20 Severe sepsis without septic shock; G20 Parkinson's disease; F02.80 Dementia in other diseases classified elsewhere, unspecified severity, without behavioral disturbance, psychotic disturbance, mood disturbance, and anxiety; E78.5 Hyperlipidemia, unspecified; E66.9 Obesity, unspecified; Z68.27 Body mass index [BMI] 27.0-27.9, adult; Z74.09 Other reduced mobility; Z79.82 Long term (current) use of aspirin; Z86.73 Personal history of transient ischemic attack (TIA), and cerebral infarction without residual deficits; I25.10 Atherosclerotic heart disease of native coronary artery without angina pectoris; Z95.1 Presence of aortocoronary bypass graft; I70.0 Atherosclerosis of aorta; E11.9 Type 2 diabetes mellitus without complications; Z79.84 Long term (current) use of oral hypoglycemic drugs; Z87.440 Personal history of urinary (tract) infections; Z86.011 Personal history of benign neoplasm of the brain; Z79.899 Other long term (current) drug therapy; G93.89 Other specified disorders of brain; F32.9 Major depressive disorder, single episode, unspecified; F01.50 Vascular dementia, unspecified severity, without behavioral disturbance, psychotic disturbance, mood disturbance, and anxiety
CPT/HCPCS: 36415; 70030-TC; 71045; 83605; 83735; 84100; 84443; 85025; 85730; 87040; 87086; 87400; 93005; 94664; A4663; G0378; J0696; J1815; J1940; J2270; J3490; J3590; J7050; J7060

== ENCOUNTER 2019-05-13 17:32 | Inpatient (IN) | payer MEDICARE, OTHER ==
[~2019-05-13] VITALS: Ht 165.1 cm; Wt 76.0 kg
--- NOTE | 2019-05-13 17:35 | NUR ---
Dr Zapata at the bedside for MSE. Pt's room air is 89-90%.
[2019-05-13] MEDS ORDERED: IV NORMAL SALINE 500 ML BAG IV ONE (17:45)
[2019-05-13 18:02] LABS: BASOPHILS # (AUTO) 0.1 K/uL (0.0-8.0); BASOPHILS % (AUTO) 0.6 % (0.0-2.0); EOSINOPHILS # (AUTO) 0.1 K/uL (0.0-0.7); EOSINOPHILS % (AUTO) 0.8 % (0.0-7.0); HEMOGLOBIN 10.4 g/dL (10.9-14.3); LYMPHOCYTES # (AUTO) 1.4 K/uL (20.0-40.0); LYMPHOCYTES % (AUTO) 11.1 % (20.5-51.5); MEAN CORPUSCULAR HEMOGLOBIN 28.2 uug (24.7-32.8); MEAN CORPUSCULAR HGB CONC 32 g/dL (32.3-35.6); MONOCYTES # (AUTO) 0.8 K/uL (2.0-10.0); MONOCYTES % (AUTO) 6.6 % (0.0-11.0); NEUTROPHILS # (AUTO) 10.3 K/uL (1.8-8.9); NEUTROPHILS % (AUTO) 80.9 % (38.5-71.5); PLATELET COUNT (AUTO) 215 K/uL (179-408); RED BLOOD CELL COUNT(AUTO) 3.67 MIL/uL (3.63-4.92); WHITE BLOOD COUNT (AUTO) 12.7 K/uL (3.8-11.8)
[2019-05-13] MEDS ORDERED: FUROSEMIDE 40 MG/4 ML VIAL ONE (18:09)
[2019-05-13] MEDS ORDERED: FUROSEMIDE 40 MG/4 ML VIAL IV ONE (18:15)
[2019-05-13 18:17] LABS: ALANINE AMINOTRANSFERASE 13 U/L (14-59); ALKALINE PHOSPHATASE 38 U/L (50-136); ASPARTATE AMINOTRANSFERASE 14 U/L (15-37); BILIRUBIN,DIRECT 0.2 mg/dL (0.0-0.2); BILIRUBIN,TOTAL 0.4 mg/dL (0.2-1.0); CARBON DIOXIDE 31 mmol/L (21-32); CHLORIDE 97 mmol/L (98-107); CREATININE 0.5 mg/dL (0.6-1.3); GLUCOSE 146 mg/dL (74-106); POTASSIUM 3.7 mmol/L (3.5-5.1); UREA NITROGEN, BLOOD 15 mg/dL (7-18)
[2019-05-13 18:24] LABS: *BILIRUBIN,URIN NEGATIVE (NEGATIVE); *BLOOD, URINE NEGATIVE (NEGATIVE); *CLARITY,URINE CLEAR (CLEAR); *COLOR,URINE YELLOW (YELLOW); *KETONES,URINE NEGATIVE (NEGATIVE); LEUKOCYTE ESTERASE ,URINE TRACE (NEGATIVE); NITRITE, URINE NEGATIVE (NEGATIVE); UGLUCOSE NEGATIVE (NEGATIVE)
[2019-05-13] MEDS ORDERED: CEFTRIAXONE 1 G in IV DEXTROSE 5% 50 ML IV ONE (18:30)
[2019-05-13 18:37] LABS: BACTERIA,URINE FEW /HPF (NONE SEEN); RBC,URINE 0-3 /HPF (0-3); SQUAMOUS EPITHELIAL CELL,UR FEW /HPF (NONE SEEN)
[2019-05-13 18:38] LABS: MUCUS,URINE MODERATE /LPF (0-FEW); YEAST,URINE MODERATE /HPF (NONE SEEN)
[2019-05-13] MEDS ORDERED: CEFTRIAXONE 1 G VIAL ONE (18:38)
--- NOTE | 2019-05-13 20:25 | NUR ---
Pt. admitted to Telemetry , under care of Dr. Franks Belongs List completed. MRSA swab done
--- NOTE | 2019-05-13 20:30 | NUR ---
Pt was brought in to floor via gurney. Admitted to tele under Dr. Franks, Wilbert CHF. Initiate admission assessment. Belonging lists reviewed.
[2019-05-13] MEDS ORDERED: BISACODYL 10 MG SUPP.RECT RC PRN (20:45)
[2019-05-13] MEDS ORDERED: FLEET ENEMA 133 ML BOTTLE RC PRN (20:45)
[2019-05-13] MEDS ORDERED: MAGNESIUM HYDROXIDE 30 ML LIQUID UDC GT PRN (20:45)
[2019-05-13 20:50] VITALS: BP 114/60
[2019-05-13] MEDS ORDERED: LEVODOPA GT SCH (21:00)
[2019-05-13] MEDS ORDERED: ACETAMINOPHEN 650 MG/20 ML UDC- SA PATIENTS-PAIN ONLY GT PRN (21:00)
[2019-05-13] MEDS ORDERED: [UNRECOGNIZED DRUG - OTHER] GT SCH (21:00)
[2019-05-13] MEDS ORDERED: CARBIDOPA GT SCH (21:00)
[2019-05-13] MEDS ORDERED: QUETIAPINE FUMARATE 25 MG TABLET GT SCH (22:00)
[2019-05-13] MEDS ORDERED: FLUCONAZOLE 200 MG/100 ML PIGGYBACK ONE (22:25)
[2019-05-13] MEDS: ATORVASTATIN 10 MG TABLET GT SCH (22:43)
[2019-05-13] MEDS: FLUCONAZOLE 200 MG/NS 100ML IV 100 MG in PREMIXED 1 EACH IV SCH (22:43)
[2019-05-13] MEDS: FUROSEMIDE 20 MG/2 ML VIAL IV SCH (22:43)
[2019-05-14] VITALS: BP 104/54
[2019-05-14] MEDS ORDERED: LORAZEPAM 2 MG/1 ML VIAL IV PRN (01:30)
[2019-05-14 04:00] VITALS: BP 110/67
--- NOTE | 2019-05-14 05:27 | NUR ---
hands off report received from Yumiko carr. Pt in no acute distress.
--- NOTE | 2019-05-14 05:30 | NUR ---
SR on tele.
--- NOTE | 2019-05-14 06:00 | NUR ---
PT SLEPT INTERMITTENTLY. PT IN NO ACUTE DISTRESS. IV INTACT. PRESCRIBED MEDICATION GIVEN AND PT TOLERATED IT WELL. PT ON G-TUBE FEEDING. PT TOLERATED IT WELL. PT ON 3L NASAL CANNULA. PT TURNED AND REPOSITIONED. SAFETY AND COMFORT PROVIDED. WILL ENDORSE TO INCOMING NURSE FOR CONTINUITY OF CARE.
[2019-05-14 06:38] LABS: ALANINE AMINOTRANSFERASE 20 U/L (14-59); ALKALINE PHOSPHATASE 33 U/L (50-136); ASPARTATE AMINOTRANSFERASE 16 U/L (15-37); BASOPHILS % (AUTO) 0.3 % (0.0-2.0); BILIRUBIN,TOTAL 0.5 mg/dL (0.2-1.0); CARBON DIOXIDE 32 mmol/L (21-32); CHLORIDE 101 mmol/L (98-107); CREATININE 0.5 mg/dL (0.6-1.3); EOSINOPHILS # (AUTO) 0.2 K/uL (0.0-0.7); EOSINOPHILS % (AUTO) 1.4 % (0.0-7.0); GLUCOSE 177 mg/dL (74-106); HEMATOCRIT 34.1 % (31.2-41.9); HEMOGLOBIN 10.8 g/dL (10.9-14.3); LYMPHOCYTES # (AUTO) 0.8 K/uL (20.0-40.0); LYMPHOCYTES % (AUTO) 5.9 % (20.5-51.5); MEAN CORPUSCULAR HEMOGLOBIN 27.9 uug (24.7-32.8); MEAN CORPUSCULAR HGB CONC 32 g/dL (32.3-35.6); MEAN CORPUSCULAR VOLUME 87.5 fL (75.5-95.3); MONOCYTES # (AUTO) 0.9 K/uL (2.0-10.0); MONOCYTES % (AUTO) 6.6 % (0.0-11.0); NEUTROPHILS # (AUTO) 12.1 K/uL (1.8-8.9); NEUTROPHILS % (AUTO) 85.8 % (38.5-71.5); PHOSPHOROUS 2.9 mg/dL (2.5-4.9); PLATELET COUNT (AUTO) 189 K/uL (179-408); POTASSIUM 3.4 mmol/L (3.5-5.1); RED BLOOD CELL COUNT(AUTO) 3.89 MIL/uL (3.63-4.92); TOTAL PROTEIN, SERUM 7.1 g/dL (6.4-8.2); UREA NITROGEN, BLOOD 18 mg/dL (7-18); WHITE BLOOD COUNT (AUTO) 14.1 K/uL (3.8-11.8)
--- NOTE | 2019-05-14 07:20 | NUR ---
MOANING CONSTANTLY, REPOSITIONED FOR COMFORT. TEMP 99.8. COOLING MEASURES DONE WITH AM CARE
[2019-05-14] MEDS ORDERED: DEXTROSE 50% 50 ML DISP.SYRIN IV PRN (08:15)
[2019-05-14] MEDS: METFORMIN HCL 500 MG TABLET GT SCH (08:18)
[2019-05-14] MEDS: PANTOPRAZOLE ORAL SUSPENSION 40 MG SUSPDR.PKT GT SCH (08:18)
[2019-05-14] MEDS: CHOLECALCIFEROL 1,000 UNIT TABLET GT SCH ×2 (08:19→17:47)
[2019-05-14] MEDS: FUROSEMIDE 20 MG/2 ML VIAL IV SCH (08:19)
[2019-05-14] MEDS: OMEGA-3 FATTY ACIDS/FISH OIL CAPSULE GT SCH (08:19)
[2019-05-14] MEDS: ACETAMINOPHEN 650 MG/20.3 ML LIQUID UDC GT PRN (08:30)
--- NOTE | 2019-05-14 08:39 | NUR ---
SEEN BY DR WILLIAM SEE NOTES AND ORDERS
[2019-05-14] MEDS ORDERED: Medication Not On Formulary EA (Omega-3 Fatty Acids (Omega-3) 1,000 MG) GT SCH (09:00)
[2019-05-14] MEDS ORDERED: ASPIRIN 81 MG TAB.CHEW GT SCH (09:00)
[2019-05-14] MEDS ORDERED: GALANTAMINE HYDROBROMIDE 8 MG GT SCH (09:00)
[2019-05-14] MEDS: GALANTAMINE 4 MG TABLET GT SCH ×2 (11:00→17:47)
--- NOTE | 2019-05-14 11:16 | NUR ---
SEEN BY DR MCCARTNEY NOTED LABS WITH ORDER. COVID TEST. INFECTIOUS DEPARTMENT NOTIFIED
[2019-05-14 11:20] VITALS: BP 130/79
[2019-05-14] MEDS: BLOOD SUGAR DIAGNOSTIC 1 EACH STRIP VI SCH ×3 (11:57→23:43)
[2019-05-14] MEDS: HYDROCODONE/APAP 5-325MG TABLET PO PRN ×2 (11:57→20:52)
[2019-05-14] MEDS: POTASSIUM CHLORIDE 50 ML IV SCH ×2 (11:57→13:09)
--- NOTE | 2019-05-14 12:00 | NUR ---
Transferred to room [address] chest[address] Droplet precaution for Covid 19 isolation initiated. KCL infused as ordered.
--- NOTE | 2019-05-14 13:00 | NUR ---
WOUND CARE CONSULT: PT PRESENTS WITH REDNESS TO LEFT EYE, RT EAR DRY LESION, RT LATERAL ANKLE STAGE 1 REDNESS, RASH TO GROIN, PERINEAL AND BUTTOCKS AREAS WITH INCONTINENCE ASSOCIATED SKIN DAMAGE, PRESENT ON ADMISSION. DEFER TO MD FOR EYE REDNESS AND RT EAR DRY LESION. RN TO DISCUSS WITH MD. RECOMMENDATIONS MADE FOR SKIN PROTECTION. DISCUSSED WITH NURSING STAFF. FIRST STEP LOW AIRLOSS MATTRESS ORDERED. WILL SEE PRN. MD IN AGREEMENT WITH PLAN OF CARE. Addendum: 05/14/19 at 1302 by MITESH AVALOS RN Amended: Links added.
[2019-05-14] MEDS: Z GUARD REMEDY PASTE 57 GM TUBE TOP PRN (13:10)
--- NOTE | 2019-05-14 18:00 | NUR ---
Placed on [address] step mattress. Skin/Wound care done. Yuen catheter out, Placed a new yuen catheter fr 18. Repositioned comfortably.
[2019-05-14] MEDS: CEFTRIAXONE 1 G in IV DEXTROSE 5% 50 ML IV SCH (18:07)
[2019-05-14] MEDS: CLOTRIMAZOLE 1% CREAM 30 GM TUBE TOP SCH (18:08)
[2019-05-14] MEDS: INSULIN REGULAR, HUMAN 300 UNIT/3 ML VIAL SQ PRN ×2 (18:15→23:49)
[2019-05-14] MEDS: GLUCERNA 1.2 1000ML LIQUID GT PRN (18:23)
[2019-05-14 18:51] VITALS: BP 147/72
[2019-05-14 20:25] VITALS: BP 140/80
[2019-05-14] MEDS: ATORVASTATIN 10 MG TABLET GT SCH (20:51)
[2019-05-14] MEDS: Z GUARD REMEDY PASTE 57 GM TUBE TOP SCH (20:52)
[2019-05-14] MEDS: FLUCONAZOLE 200 MG/NS 100ML IV 100 MG in PREMIXED 1 EACH IV SCH (21:04)
[2019-05-15 00:56] VITALS: BP 110/64
[2019-05-15 04:00] VITALS: BP 112/54
[2019-05-15] MEDS: HYDROCODONE/APAP 5-325MG TABLET PO PRN ×2 (05:28→20:58)
[2019-05-15] MEDS: BLOOD SUGAR DIAGNOSTIC 1 EACH STRIP VI SCH ×4 (05:38→23:37)
[2019-05-15] MEDS: INSULIN REGULAR, HUMAN 300 UNIT/3 ML VIAL SQ PRN ×3 (05:46→18:05)
--- NOTE | 2019-05-15 06:48 | NUR ---
Patient slept poorly noted moaning throughout the night. PRN [place] 5-325 given x 2x via GT, tolerated well. SR on Tele monitor. On contact and droplet isolation for possible covid infection. No SOB noted, afebrile this shift. IV on L hand 20g intact and patent. F/C intact and draining clear nico colored urine. Oral care provided. Turned and repositioned Q2. Will endorse accordingly
[2019-05-15] MEDS: METFORMIN HCL 500 MG TABLET GT SCH (08:20)
[2019-05-15] MEDS: PANTOPRAZOLE ORAL SUSPENSION 40 MG SUSPDR.PKT GT SCH (08:20)
[2019-05-15] MEDS: GALANTAMINE 4 MG TABLET GT SCH ×2 (08:20→16:40)
[2019-05-15] MEDS: OMEGA-3 FATTY ACIDS/FISH OIL CAPSULE GT SCH (08:20)
[2019-05-15] MEDS: FUROSEMIDE 20 MG TABLET PO SCH (08:20)
[2019-05-15] MEDS: CHOLECALCIFEROL 1,000 UNIT TABLET GT SCH ×2 (08:20→16:40)
[2019-05-15] MEDS: Z GUARD REMEDY PASTE 57 GM TUBE TOP SCH ×2 (08:21→21:36)
[2019-05-15] MEDS: CLOTRIMAZOLE 1% CREAM 30 GM TUBE TOP SCH ×2 (08:21→16:41)
[2019-05-15] MEDS: ACETAMINOPHEN 650 MG/20.3 ML LIQUID UDC GT PRN (10:07)
[2019-05-15 11:14] LABS: BASOPHILS # (AUTO) 0.1 K/uL (0.0-8.0); BASOPHILS % (AUTO) 0.5 % (0.0-2.0); EOSINOPHILS # (AUTO) 0.1 K/uL (0.0-0.7); EOSINOPHILS % (AUTO) 1.3 % (0.0-7.0); HEMOGLOBIN 10.9 g/dL (10.9-14.3); LYMPHOCYTES # (AUTO) 0.7 K/uL (20.0-40.0); LYMPHOCYTES % (AUTO) 7.1 % (20.5-51.5); MEAN CORPUSCULAR HEMOGLOBIN 27.9 uug (24.7-32.8); MEAN CORPUSCULAR HGB CONC 32 g/dL (32.3-35.6); MONOCYTES # (AUTO) 0.8 K/uL (2.0-10.0); MONOCYTES % (AUTO) 7.3 % (0.0-11.0); NEUTROPHILS # (AUTO) 8.8 K/uL (1.8-8.9); NEUTROPHILS % (AUTO) 83.8 % (38.5-71.5); PLATELET COUNT (AUTO) 258 K/uL (179-408); RED BLOOD CELL COUNT(AUTO) 3.91 MIL/uL (3.63-4.92); WHITE BLOOD COUNT (AUTO) 10.5 K/uL (3.8-11.8)
[2019-05-15 11:21] LABS: CARBON DIOXIDE 34 mmol/L (21-32); CHLORIDE 97 mmol/L (98-107); CREATININE 0.4 mg/dL (0.6-1.3); GLUCOSE 154 mg/dL (74-106); PHOSPHOROUS 3.4 mg/dL (2.5-4.9); POTASSIUM 4.4 mmol/L (3.5-5.1); UREA NITROGEN, BLOOD 16 mg/dL (7-18)
[2019-05-15 12:28] VITALS: BP 135/78
[2019-05-15] MEDS: GLUCERNA 1.2 1000ML LIQUID GT PRN (14:05)
[2019-05-15 16:38] VITALS: BP 154/82
[2019-05-15] MEDS: CEFTRIAXONE 1 G in IV DEXTROSE 5% 50 ML IV SCH (17:57)
--- NOTE | 2019-05-15 18:16 | NUR ---
Patient awake, not following commands. Moaning throughout the shift. PRN tylenol given today. On GT feeds, set changed today. Tolerating feeding well. Afebrile this shift, continues on antibiotics. Skin precautions in place, frequent repositioning and ordered wound care done today. On continuous pulse ox, no SOB/resp distress noted. 3L of oxygen via nasal cannula. Oral care provided, suctioning as needed. Hancock catheter in place, draining nico urine. On satellite project site monitor, sinus rhythm. Will endorse care to oncoming shift.
[2019-05-15 20:40] VITALS: BP 147/75
[2019-05-15] MEDS: ATORVASTATIN 10 MG TABLET GT SCH (20:58)
[2019-05-15] MEDS: FLUCONAZOLE 100 MG TABLET PO SCH (21:06)
[2019-05-16] MEDS: INSULIN REGULAR, HUMAN 300 UNIT/3 ML VIAL SQ PRN ×4 (00:08→23:31)
[2019-05-16 00:25] VITALS: BP 111/77
[2019-05-16 04:26] VITALS: BP 136/76
[2019-05-16] MEDS: BLOOD SUGAR DIAGNOSTIC 1 EACH STRIP VI SCH ×4 (05:58→23:18)
--- NOTE | 2019-05-16 06:37 | NUR ---
Patient slept intermittently noted w/ episodes of moaning throughout the night. No SOB noted, afebrile this shift. SR on Tele monitor. PRN [place] 5-325 given x 1 via GT. On GT feeding Glucerna 1.2 x 65ml/hr tolerated well. HOB kept elevated for aspiration precautions. On contact and droplet isolation for possible Covid19. IV on L hand 20g intact and patent. F/C intact and draining clear nico colored urine. Suction and oral care provided. Turned and repositioned Q2. Will endorse accordingly
--- NOTE | 2019-05-16 08:00 | NUR ---
Received patient in bed, open eyes, No signs of distress noted. NO SOB, On Oxygen at 2LPM via nasal cannula, tolerating well. saturating 99%. Received patient moaning. Turned and repositioned. On contact and droplet isolation for possible Covid 19. kept clean and comfortable. Will continue to monitor.
[2019-05-16] MEDS: OMEGA-3 FATTY ACIDS/FISH OIL CAPSULE GT SCH (08:47)
[2019-05-16] MEDS: CHOLECALCIFEROL 1,000 UNIT TABLET GT SCH ×2 (08:48→16:26)
[2019-05-16] MEDS: FUROSEMIDE 20 MG TABLET PO SCH (08:48)
[2019-05-16] MEDS: GALANTAMINE 4 MG TABLET GT SCH ×2 (08:48→16:26)
[2019-05-16] MEDS: METFORMIN HCL 500 MG TABLET GT SCH (08:48)
[2019-05-16] MEDS: FLUCONAZOLE 100 MG TABLET PO SCH (08:48)
[2019-05-16] MEDS: PANTOPRAZOLE ORAL SUSPENSION 40 MG SUSPDR.PKT GT SCH (08:48)
[2019-05-16 09:20] VITALS: BP 134/65
[2019-05-16] MEDS: GLUCERNA 1.2 1000ML LIQUID GT PRN (09:30)
[2019-05-16] MEDS: CLOTRIMAZOLE 1% CREAM 30 GM TUBE TOP SCH ×2 (09:36→17:25)
[2019-05-16] MEDS: Z GUARD REMEDY PASTE 57 GM TUBE TOP SCH ×2 (09:36→20:19)
[2019-05-16 15:38] VITALS: BP 138/79
[2019-05-16] MEDS: CEFTRIAXONE 1 G in IV DEXTROSE 5% 50 ML IV SCH (17:25)
--- NOTE | 2019-05-16 18:24 | NUR ---
Patient in bed, No signs of distress noted. No SOB. On Oxygen at 2LPM via nasal Cannula, saturating 99%. Afebrile. All due medication given as ordered. GTube feeding tolerated well. No residual noted. kept clean and comfortable. Will endorse to Oncoming Nurse.
[2019-05-16] MEDS: ATORVASTATIN 10 MG TABLET GT SCH (20:16)
[2019-05-16] MEDS: ACETAMINOPHEN 650 MG/20.3 ML LIQUID UDC GT PRN (20:16)
[2019-05-16 20:17] VITALS: BP 141/76
[2019-05-17 04:44] VITALS: BP 108/59
[2019-05-17] MEDS: BLOOD SUGAR DIAGNOSTIC 1 EACH STRIP VI SCH ×3 (05:23→17:12)
--- NOTE | 2019-05-17 06:48 | NUR ---
Patient slept well but noted w/ episodes of moaning. No SOB noted, afebrile this shift. On GT feeding Glucerna 1.2 x 65ml/hr tolerated well. HOB kept elevated for aspiration precautions. On contact and droplet isolation for possible Covid19. IV on L hand 20g intact and patent. F/C intact and draining clear nico colored urine. Suction and oral care provided. Turned and repositioned Q2. Will endorse accordingly
[2019-05-17 07:18] LABS: CARBON DIOXIDE 36 mmol/L (21-32); CHLORIDE 103 mmol/L (98-107); CREATININE 0.4 mg/dL (0.6-1.3); GLUCOSE 114 mg/dL (74-106); MAGNESIUM 2.1 mg/dL (1.8-2.4); PHOSPHOROUS 4.4 mg/dL (2.5-4.9); POTASSIUM 4.2 mmol/L (3.5-5.1); UREA NITROGEN, BLOOD 14 mg/dL (7-18)
[2019-05-17 07:25] LABS: BASOPHILS # (AUTO) 0.1 K/uL (0.0-8.0); BASOPHILS % (AUTO) 1.1 % (0.0-2.0); EOSINOPHILS # (AUTO) 0.2 K/uL (0.0-0.7); EOSINOPHILS % (AUTO) 3.4 % (0.0-7.0); HEMATOCRIT 30.7 % (31.2-41.9); LYMPHOCYTES # (AUTO) 1.1 K/uL (20.0-40.0); LYMPHOCYTES % (AUTO) 17.9 % (20.5-51.5); MEAN CORPUSCULAR HEMOGLOBIN 28.4 uug (24.7-32.8); MEAN CORPUSCULAR HGB CONC 33 g/dL (32.3-35.6); MEAN CORPUSCULAR VOLUME 87.1 fL (75.5-95.3); MONOCYTES # (AUTO) 0.6 K/uL (2.0-10.0); MONOCYTES % (AUTO) 10.2 % (0.0-11.0); NEUTROPHILS # (AUTO) 4.1 K/uL (1.8-8.9); NEUTROPHILS % (AUTO) 67.4 % (38.5-71.5); PLATELET COUNT (AUTO) 305 K/uL (179-408); RED BLOOD CELL COUNT(AUTO) 3.52 MIL/uL (3.63-4.92)
[2019-05-17 07:29] LABS: WHITE BLOOD COUNT (AUTO) 6.1 K/uL (3.8-11.8)
[2019-05-17] MEDS: GALANTAMINE 4 MG TABLET GT SCH ×2 (08:07→17:01)
[2019-05-17] MEDS: PROTEIN SUPPLEMENT (PROSTAT) 30 ML LIQUID GT SCH ×2 (08:07→17:02)
[2019-05-17] MEDS: CHOLECALCIFEROL 1,000 UNIT TABLET GT SCH ×2 (08:07→17:01)
[2019-05-17] MEDS: OMEGA-3 FATTY ACIDS/FISH OIL CAPSULE GT SCH (08:07)
[2019-05-17] MEDS: PANTOPRAZOLE ORAL SUSPENSION 40 MG SUSPDR.PKT GT SCH (08:07)
[2019-05-17] MEDS: FUROSEMIDE 20 MG TABLET PO SCH (08:07)
[2019-05-17] MEDS: METFORMIN HCL 500 MG TABLET GT SCH (08:07)
[2019-05-17] MEDS: FLUCONAZOLE 100 MG TABLET PO SCH (08:07)
--- NOTE | 2019-05-17 08:10 | NUR ---
Received patient in bed, open eyes, No signs of distress noted. No SOB. On Oxygen at 2L via Nasal cannula, saturating 98%. No signs of distress noted. Afebrile, No signs of Pain at this time. Abdomen soft and non distended, Gtube intact and patent, remains of Contact and droplet isolation for possible covid19. Proper PPE strictly Observed. Kept clean and comfortable. Will continue to monitor.
[2019-05-17 08:30] VITALS: BP 133/77
[2019-05-17] MEDS: GLUCERNA 1.2 1000ML LIQUID GT PRN (08:35)
[2019-05-17] MEDS: Z GUARD REMEDY PASTE 57 GM TUBE TOP SCH ×2 (09:18→21:42)
[2019-05-17] MEDS: CLOTRIMAZOLE 1% CREAM 30 GM TUBE TOP SCH ×2 (09:18→17:02)
[2019-05-17] MEDS: INSULIN REGULAR, HUMAN 300 UNIT/3 ML VIAL SQ PRN ×2 (11:55→17:14)
[2019-05-17] MEDS: CEFTRIAXONE 1 G in IV DEXTROSE 5% 50 ML IV SCH (17:02)
--- NOTE | 2019-05-17 18:33 | NUR ---
Patient in bed, No signs of distress noted. No SOB. On Oxygen at 2L via Nasal canula, Afebrile. Patient with episode of Moaning. All due medications given as ordered. Gtube feeding tolerated well, No residual noted. kept HOB elevated at all time. Kept clean and comfortable. Will endorse to Oncoming Nurse.
[2019-05-17 19:57] VITALS: BP 119/74
--- NOTE | 2019-05-17 20:00 | NUR ---
Patient received into care laying in bed sleeping, resting comfortably. Patient has no s/s of acute distress or discomfort noted/observed by nurse. Oxygen flowing at 2L/min via NC and patient has a saturation of 99% and a pulse rate of 74/min. Suction equipment is at bedside and functioning. All safety and fall precaution measures are in place. Call light and personal items are within reach at all times.
[2019-05-17] MEDS: ATORVASTATIN 10 MG TABLET GT SCH (21:41)
[2019-05-18] MEDS: BLOOD SUGAR DIAGNOSTIC 1 EACH STRIP VI SCH ×5 (00:16→23:48)
[2019-05-18] MEDS: INSULIN REGULAR, HUMAN 300 UNIT/3 ML VIAL SQ PRN ×3 (00:22→17:38)
[2019-05-18 04:35] VITALS: BP 155/75
--- NOTE | 2019-05-18 06:00 | NUR ---
Patient slept throughout night with no s/s of acute distress or discomfort noted/observed by nurse. All nursing needs were met promptly and patient is warm, dry, and comfortable. Patient tolerated Gtube feeding well with no residual aspirated. All safety and fall precaution measures remain in place. Call light and personal items remain within reach at all times. Will provide update to AM nurse.
--- NOTE | 2019-05-18 08:00 | NUR ---
Received patient in bed, open eyes. No signs of distress noted. No SOB. On Oxygen at 2L via Nasal cannula, No signs of pain or discomfort. Gtube intact and patent. Abdomen soft and nondistended, kept clean and comfortable. Remains on contact and droplet isolation for rule out covid 19, Proper PPE strictly observed. Will continue to monitor.
[2019-05-18] MEDS: FUROSEMIDE 20 MG TABLET PO SCH (08:39)
[2019-05-18] MEDS: PANTOPRAZOLE ORAL SUSPENSION 40 MG SUSPDR.PKT GT SCH (08:39)
[2019-05-18] MEDS: FLUCONAZOLE 100 MG TABLET PO SCH (08:39)
[2019-05-18] MEDS: GALANTAMINE 4 MG TABLET GT SCH ×2 (08:39→16:17)
[2019-05-18] MEDS: METFORMIN HCL 500 MG TABLET GT SCH (08:39)
[2019-05-18] MEDS: OMEGA-3 FATTY ACIDS/FISH OIL CAPSULE GT SCH (08:39)
[2019-05-18] MEDS: CHOLECALCIFEROL 1,000 UNIT TABLET GT SCH ×2 (08:39→16:17)
[2019-05-18] MEDS: PROTEIN SUPPLEMENT (PROSTAT) 30 ML LIQUID GT SCH ×2 (08:40→16:17)
[2019-05-18] MEDS: Z GUARD REMEDY PASTE 57 GM TUBE TOP SCH ×2 (09:05→21:06)
[2019-05-18] MEDS: CLOTRIMAZOLE 1% CREAM 30 GM TUBE TOP SCH ×2 (09:05→16:17)
[2019-05-18 11:00] VITALS: BP 143/75
[2019-05-18] MEDS: CEFTRIAXONE 1 G in IV DEXTROSE 5% 50 ML IV SCH (17:06)
--- NOTE | 2019-05-18 18:26 | NUR ---
Patient in bed, No signs of distress noted. Afebrile. No signs of pain or discomfort. turned and repositioned. GTube feeding tolerated well. Kept HOB elevated at all time. Kept clean and comfortable. Proper PPE strictly Observed for contact and droplet Isolation to rule out covid 19. Will endorse to Oncoming Nurse.
[2019-05-18 19:41] VITALS: BP 146/61
--- NOTE | 2019-05-18 20:00 | NUR ---
Patient received into care laying in bed asleep, resting comfortably. Patient has no s/s of acute distress or discomfort noted or observed by nurse. IV site on right hand is patent/intact. GT feeding running at 65mL/hr. All safety and fall precaution measures are in place. Call light and personal items are within reach at all times. Will continue to monitor and observe.
[2019-05-18] MEDS: ATORVASTATIN 10 MG TABLET GT SCH (21:05)
[2019-05-19 04:39] VITALS: BP 100/61
--- NOTE | 2019-05-19 06:00 | NUR ---
Patient slept intermittently throughout night with no s/s of acute distress/discomfort noted or observed by nurse. All prescribed medications provided as ordered and tolerated well by patient, with no adverse side effects noted/observed by nurse. Gtube feeding tolerated well by patient with no residual aspirated. All nursing needs were addressed and patient is warm and dry, resting comfortably. Call light and personal items remain within reach. All safety and fall precaution measures remain in place.
[2019-05-19] MEDS: BLOOD SUGAR DIAGNOSTIC 1 EACH STRIP VI SCH ×3 (06:27→17:49)
--- NOTE | 2019-05-19 08:00 | NUR ---
Received patient resting in bed. No signs of distress/ discomfort noted. No SOB/ difficulty breathing. On Oxygen at 2L via Nasal cannula, Gtube intact and patent flushing well no residual. Will resume tube feeding at 8:30 AM as ordered. Abdomen soft and nondistended, kept clean and comfortable. Remains on contact and droplet isolation for rule out covid 19, Proper PPE strictly observed. safety measures in place. Will continue to monitor.
[2019-05-19] MEDS: CHOLECALCIFEROL 1,000 UNIT TABLET GT SCH ×2 (09:10→17:29)
[2019-05-19] MEDS: FUROSEMIDE 20 MG TABLET PO SCH (09:10)
[2019-05-19] MEDS: METFORMIN HCL 500 MG TABLET GT SCH (09:10)
[2019-05-19] MEDS: OMEGA-3 FATTY ACIDS/FISH OIL CAPSULE GT SCH (09:10)
[2019-05-19] MEDS: FLUCONAZOLE 100 MG TABLET PO SCH (09:10)
[2019-05-19] MEDS: PROTEIN SUPPLEMENT (PROSTAT) 30 ML LIQUID GT SCH ×2 (09:10→17:29)
[2019-05-19] MEDS: PANTOPRAZOLE ORAL SUSPENSION 40 MG SUSPDR.PKT GT SCH (09:10)
[2019-05-19] MEDS: GALANTAMINE 4 MG TABLET GT SCH ×2 (09:12→17:29)
[2019-05-19] MEDS: CLOTRIMAZOLE 1% CREAM 30 GM TUBE TOP SCH ×2 (09:34→17:29)
[2019-05-19] MEDS: Z GUARD REMEDY PASTE 57 GM TUBE TOP SCH ×2 (09:34→20:23)
[2019-05-19 09:37] VITALS: BP 150/80
--- NOTE | 2019-05-19 10:58 | NUR ---
results back for covid-19 test. Results are negative. Dr. mendoza. Isolation discharged by doctor. Awaiting discharge orders. Pt. is stable
--- NOTE | 2019-05-19 11:39 | NUR ---
According to lab court the test is still pending for covid-19. Previous negative results were given by nursing supervisor park workers. will keep pt. on contact and droplet precautions until results from lab court come back.
[2019-05-19] MEDS: HYDROCODONE/APAP 5-325MG TABLET PO PRN (11:55)
[2019-05-19] MEDS: INSULIN REGULAR, HUMAN 300 UNIT/3 ML VIAL SQ PRN (12:07)
[2019-05-19 15:00] VITALS: BP 128/50
[2019-05-19] MEDS: GLUCERNA 1.2 1000ML LIQUID GT PRN (15:32)
[2019-05-19] MEDS: ACETAMINOPHEN 650 MG/20.3 ML LIQUID UDC GT PRN (17:29)
[2019-05-19] MEDS: CEFTRIAXONE 1 G in IV DEXTROSE 5% 50 ML IV SCH (17:29)
--- NOTE | 2019-05-19 19:10 | NUR ---
pt. resting comfortably throughout shift. IV intact. pt. on 2 L NC. pt. g tube intact. repositioned pt. yuen catheter in place. urine output of 1500 cc during shift clear yellow urine. safety measures in place. call light within reach. will endorse to pm nurse
[2019-05-19 19:30] VITALS: BP 112/63
--- NOTE | 2019-05-19 19:30 | NUR ---
patient received in bed. no signs of acute distress. v/s stable. spo2 monitor at bedside and WNL for O2 and HR. NC 2L. Hancock catheter and G-tube patent and intact. safety precautions provided. bed in lowest position. side rails up x2, bed alarm on. isolation precautions noted. test results pending. will continue to monitor and continue plan of care.
[2019-05-19] MEDS: ATORVASTATIN 10 MG TABLET GT SCH (20:23)
[2019-05-20] MEDS: ACETAMINOPHEN 650 MG/20.3 ML LIQUID UDC GT PRN (00:07)
[2019-05-20] MEDS: HYDROCODONE/APAP 5-325MG TABLET PO PRN ×2 (00:07→12:14)
[2019-05-20] MEDS: BLOOD SUGAR DIAGNOSTIC 1 EACH STRIP VI SCH ×4 (00:08→17:36)
[2019-05-20] MEDS: INSULIN REGULAR, HUMAN 300 UNIT/3 ML VIAL SQ PRN ×3 (00:25→18:20)
[2019-05-20 04:38] VITALS: BP 124/63
--- NOTE | 2019-05-20 08:00 | NUR ---
Received patient resting on air mattress bed. No signs of distress/ discomfort noted. No SOB/ difficulty breathing. On Oxygen at 2L via Nasal cannula, Gtube intact and patent flushing well no residual. Abdomen soft and nondistended, kept clean and comfortable. Remains on contact and droplet isolation for rule out covid 19, Proper PPE strictly observed. safety measures in place. Will continue to monitor.
[2019-05-20] MEDS: FLUCONAZOLE 100 MG TABLET PO SCH (09:49)
[2019-05-20] MEDS: PANTOPRAZOLE ORAL SUSPENSION 40 MG SUSPDR.PKT GT SCH (09:49)
[2019-05-20] MEDS: OMEGA-3 FATTY ACIDS/FISH OIL CAPSULE GT SCH (09:49)
[2019-05-20] MEDS: GALANTAMINE 4 MG TABLET GT SCH ×2 (09:49→17:24)
[2019-05-20] MEDS: METFORMIN HCL 500 MG TABLET GT SCH (09:49)
[2019-05-20] MEDS: FUROSEMIDE 20 MG TABLET PO SCH (09:49)
[2019-05-20] MEDS: CHOLECALCIFEROL 1,000 UNIT TABLET GT SCH ×2 (09:49→17:23)
[2019-05-20] MEDS: PROTEIN SUPPLEMENT (PROSTAT) 30 ML LIQUID GT SCH ×2 (09:50→17:23)
[2019-05-20] MEDS: CLOTRIMAZOLE 1% CREAM 30 GM TUBE TOP SCH ×2 (09:50→17:23)
[2019-05-20] MEDS: Z GUARD REMEDY PASTE 57 GM TUBE TOP SCH ×2 (09:50→20:58)
[2019-05-20 11:49] VITALS: BP 150/88
[2019-05-20] MEDS: GLUCERNA 1.2 1000ML LIQUID GT PRN (12:15)
[2019-05-20] MEDS: CEFTRIAXONE 1 G in IV DEXTROSE 5% 50 ML IV SCH (17:23)
--- NOTE | 2019-05-20 18:43 | NUR ---
pt. resting comfortably throughout shift. IV intact. pt. on 2 L NC. pt. g tube intact receiving g tube feeding. repositioned pt. yuen catheter in place. yuen draining clear yellow urine. safety measures in place. call light within reach. will endorse to pm nurse
--- NOTE | 2019-05-20 19:40 | NUR ---
PATIENT AWAKE NON VERBALLY, HOB ELEVATED, NO SOB NO CHEST PAIN, GTF TOLERATE WELL NO VOMITING, NO DIARRHEA NOTED, REMAINS DROPLET PRECAUTION. TURN AND REPOSITION, PIKE CATH PATENT DRAINING WITH YELLOW COLOR URINE IN MODERATE AMOUNT, CON TO MONITOR.
[2019-05-20 20:25] VITALS: BP 122/64
[2019-05-20] MEDS: ATORVASTATIN 10 MG TABLET GT SCH (20:58)
[2019-05-21] MEDS: BLOOD SUGAR DIAGNOSTIC 1 EACH STRIP VI SCH ×4 (00:28→18:38)
[2019-05-21] MEDS: HYDROCODONE/APAP 5-325MG TABLET PO PRN ×2 (00:35→12:23)
--- NOTE | 2019-05-21 00:38 | NUR ---
PATIENT MOONING, AND CRYING, GIVEN PAIN MEDICATIONS FOR PAIN AND DISCOMFORT. CONT TO MONITOR.
--- NOTE | 2019-05-21 04:54 | NUR ---
PATIENT ASLEEP BUT AROUSABLE, NO S/S OF PAIN AT THIS TIME, PATIENT APPEAR TO BE RELAX. PATIENT REMAINS ON DROPLET PRECAUTION. PATIENT TOLERATE FEEDING NO RESIDUAL NOTED, AFEBRILE, TURN AND REPOSITION, KEPT CLEAN AND DRY.
[2019-05-21 06:54] VITALS: BP 134/68
[2019-05-21] MEDS: INSULIN REGULAR, HUMAN 300 UNIT/3 ML VIAL SQ PRN ×2 (06:55→12:43)
[2019-05-21] MEDS: Z GUARD REMEDY PASTE 57 GM TUBE TOP PRN (06:56)
[2019-05-21 12:00] VITALS: BP 158/79
[2019-05-21] MEDS: PROTEIN SUPPLEMENT (PROSTAT) 30 ML LIQUID GT SCH ×2 (12:22→18:44)
[2019-05-21] MEDS: PANTOPRAZOLE ORAL SUSPENSION 40 MG SUSPDR.PKT GT SCH (12:22)
[2019-05-21] MEDS: OMEGA-3 FATTY ACIDS/FISH OIL CAPSULE GT SCH (12:22)
[2019-05-21] MEDS: METFORMIN HCL 500 MG TABLET GT SCH (12:22)
[2019-05-21] MEDS: CHOLECALCIFEROL 1,000 UNIT TABLET GT SCH ×2 (12:23→18:34)
[2019-05-21] MEDS: FUROSEMIDE 20 MG TABLET PO SCH (12:23)
[2019-05-21] MEDS: CLOTRIMAZOLE 1% CREAM 30 GM TUBE TOP SCH ×2 (12:24→18:59)
[2019-05-21] MEDS: GALANTAMINE 4 MG TABLET GT SCH ×2 (12:24→18:34)
[2019-05-21] MEDS: Z GUARD REMEDY PASTE 57 GM TUBE TOP SCH ×2 (12:24→21:58)
[2019-05-21] MEDS: GLUCERNA 1.2 1000ML LIQUID GT PRN (12:28)
--- NOTE | 2019-05-21 19:10 | NUR ---
pt. resting comfortably throughout shift. IV intact. pt. on 2 L NC. pt. g tube intact receiving g tube feeding. repositioned pt. yuen catheter in place. yuen draining clear yellow urine. Safety measures in place. call light within reach. will endorse to pm nurse
[2019-05-21 19:13] VITALS: BP 125/64
[2019-05-21 21:15] VITALS: BP 109/68
[2019-05-21] MEDS: ATORVASTATIN 10 MG TABLET GT SCH (21:40)
[2019-05-22] MEDS: BLOOD SUGAR DIAGNOSTIC 1 EACH STRIP VI SCH ×5 (00:45→23:54)
[2019-05-22] MEDS: HYDROCODONE/APAP 5-325MG TABLET PO PRN ×2 (02:37→11:56)
[2019-05-22] MEDS: ACETAMINOPHEN 650 MG/20.3 ML LIQUID UDC GT PRN ×2 (02:37→08:34)
--- NOTE | 2019-05-22 02:37 | NUR ---
patient had s/s of pain using the FLACC scale. administered norco and tylenol to address. no adverse effects. will continue to monitor.
--- NOTE | 2019-05-22 06:30 | NUR ---
patient slept intermittently throughout shift. v/s stable and no s/s of acute distress. sp02 monitor WNL. safety precautions provided. G-tube flushed x2, patent, and intact. Hancock patient and intact. wound care provided per wound care nurse notes. oral care provided. will continue plan of care and endorse to morning nurse.
[2019-05-22 07:06] VITALS: BP 139/59
--- NOTE | 2019-05-22 08:00 | NUR ---
Received patient awake in bed. AAOx1; nonverbal and garbles. In no acute distress. Contact and droplet precaution observed. No SOB noted. Receiving 2L via NC. Hancock in place and dwelling well. Gtube in place, no residual. IV on L hand intact and patent; saline lock. Will continue to monitor and assess.
[2019-05-22] MEDS: PANTOPRAZOLE ORAL SUSPENSION 40 MG SUSPDR.PKT GT SCH (08:36)
[2019-05-22] MEDS: PROTEIN SUPPLEMENT (PROSTAT) 30 ML LIQUID GT SCH ×2 (08:36→16:18)
[2019-05-22] MEDS: FUROSEMIDE 20 MG TABLET PO SCH (08:37)
[2019-05-22] MEDS: OMEGA-3 FATTY ACIDS/FISH OIL CAPSULE GT SCH (08:37)
[2019-05-22] MEDS: METFORMIN HCL 500 MG TABLET GT SCH (08:38)
[2019-05-22] MEDS: CLOTRIMAZOLE 1% CREAM 30 GM TUBE TOP SCH ×2 (08:38→16:17)
[2019-05-22] MEDS: Z GUARD REMEDY PASTE 57 GM TUBE TOP SCH ×2 (08:38→21:03)
[2019-05-22] MEDS: CHOLECALCIFEROL 1,000 UNIT TABLET GT SCH ×2 (08:38→16:17)
[2019-05-22] MEDS: GALANTAMINE 4 MG TABLET GT SCH ×2 (08:39→16:17)
[2019-05-22 09:19] VITALS: BP 151/78
[2019-05-22 11:41] VITALS: BP 139/71
[2019-05-22] MEDS: INSULIN REGULAR, HUMAN 300 UNIT/3 ML VIAL SQ PRN ×2 (12:19→18:29)
[2019-05-22] MEDS: GLUCERNA 1.2 1000ML LIQUID GT PRN (16:39)
[2019-05-22 16:40] VITALS: BP 110/58
--- NOTE | 2019-05-22 18:12 | NUR ---
Patient resting comfortably at this time. VSS. No s/s of acute distress. No SOB noted. All needs attended at all times. Will endorse care accordingly.
--- NOTE | 2019-05-22 19:59 | NUR ---
Patient received into care laying in bed, resting comfortably. Patient is alert/oriented x1, nonverbal, and has no no s/s of acute distress/discomfort noted or observed by nurse. All safety, fall, and isolation precautions are in place. Call light and personal items are within reach at all times. Will continue to monitor and assess.
[2019-05-22 20:18] VITALS: BP 124/76
[2019-05-22] MEDS: ATORVASTATIN 10 MG TABLET GT SCH (21:03)
[2019-05-23 04:42] VITALS: BP 133/58
--- NOTE | 2019-05-23 06:00 | NUR ---
Patient slept comfortably throughout night with no acute distress/discomfort noted/observed by nurse. All nursing needs were met promptly and patient is warm, dry, and comfortable. All safety, fall, and isolation precautions remain in place. Call light and personal items remain within reach.
[2019-05-23] MEDS: BLOOD SUGAR DIAGNOSTIC 1 EACH STRIP VI SCH ×2 (06:10→11:31)
--- NOTE | 2019-05-23 08:00 | NUR ---
Received patient in bed. On Oxygen at 2LPM via Nasal canula, No signs of SOB, No signs of distress noted. Afebrile. Received a negative covid19 result and will be discharge back to [facility] today. kept clean and comfortable. Will continue to monitor.
[2019-05-23] MEDS: FUROSEMIDE 20 MG TABLET PO SCH (08:38)
[2019-05-23] MEDS: METFORMIN HCL 500 MG TABLET GT SCH (08:38)
[2019-05-23] MEDS: OMEGA-3 FATTY ACIDS/FISH OIL CAPSULE GT SCH (08:38)
[2019-05-23] MEDS: CHOLECALCIFEROL 1,000 UNIT TABLET GT SCH (08:39)
[2019-05-23] MEDS: CLOTRIMAZOLE 1% CREAM 30 GM TUBE TOP SCH (08:40)
[2019-05-23] MEDS: Z GUARD REMEDY PASTE 57 GM TUBE TOP SCH (08:41)
[2019-05-23] MEDS: PANTOPRAZOLE ORAL SUSPENSION 40 MG SUSPDR.PKT GT SCH (08:42)
[2019-05-23] MEDS: PROTEIN SUPPLEMENT (PROSTAT) 30 ML LIQUID GT SCH (08:42)
[2019-05-23] MEDS: GALANTAMINE 4 MG TABLET GT SCH (08:43)
[2019-05-23 11:36] VITALS: BP 132/66
[2019-05-23 15:51] VITALS: BP 114/65
--- NOTE | 2019-05-23 16:00 | NUR ---
Patient with Discharge Order today to [facility], Called [facility] and spoke with Chloé Sutton RN, All belongings was sent to patient, Removed IV site and Wrist band. patient was picked up by [facility] in stable condition
== END 2019-05-23 16:02 | DRG 871 ==
LOC: ER 17:32 → TELE3 20:06 → MEDSURG3 05-16 19:31
PROVIDERS: ADMIT Internal Medicine; ATTEND Nurse Practitioner Acute Care
DX: A41.9 Sepsis, unspecified organism (principal); I50.33 Acute on chronic diastolic (congestive) heart failure; J96.01 Acute respiratory failure with hypoxia; G92 Toxic encephalopathy; D68.69 Other thrombophilia; J21.9 Acute bronchiolitis, unspecified; B49 Unspecified mycosis; N39.0 Urinary tract infection, site not specified; I11.0 Hypertensive heart disease with heart failure; E66.9 Obesity, unspecified; F32.9 Major depressive disorder, single episode, unspecified; G20 Parkinson's disease; I25.10 Atherosclerotic heart disease of native coronary artery without angina pectoris; Z95.1 Presence of aortocoronary bypass graft; Z93.1 Gastrostomy status; Z87.440 Personal history of urinary (tract) infections; Z86.73 Personal history of transient ischemic attack (TIA), and cerebral infarction without residual deficits; R13.10 Dysphagia, unspecified; E11.9 Type 2 diabetes mellitus without complications; E78.5 Hyperlipidemia, unspecified; K21.9 Gastro-esophageal reflux disease without esophagitis; Z88.2 Allergy status to sulfonamides; L98.8 Other specified disorders of the skin and subcutaneous tissue; F03.90 Unspecified dementia, unspecified severity, without behavioral disturbance, psychotic disturbance, mood disturbance, and anxiety; Z86.011 Personal history of benign neoplasm of the brain; Z79.84 Long term (current) use of oral hypoglycemic drugs
CPT/HCPCS: 36415; 70030-TC; 71045; 71250; 74018; 83605; 83735; 84100; 85025; 85730; 87040; 87086; 87400; 93005; A4217; A4663; G0378; J0696; J1450; J1815; J1940; J3480; J7030; J7040; J7050; J7060

== ENCOUNTER 2019-07-12 08:05 | Inpatient (IN) | payer MEDICARE, OTHER ==
[~2019-07-12] VITALS: Ht 170.2 cm; Wt 76.7 kg
[~2019-07-12 08:05] MED LIST: ACET325T53 GT; ACET325T53 PO; ASPI81TA31 GT; ATOR10TA GT; BISA10SU61 RC; CARB1CAP3 GT; CHOL10002 GT; CRAN1CAP6 GT; FURO-152 GT; GALA8TAB4 GT; MAGN400O6 GT; METF-440 GT; NA P133E4 RC; OMEG10006 GT; QUET25TA GT; UBID100T7 GT; VENL37.510 GT
--- NOTE | 2019-07-12 08:41 | NUR ---
Dr [email or web address], MSE in progress, pending orders
--- NOTE | 2019-07-12 08:44 | NUR ---
Initial medication review done, admitting MD/ELECTRICIAN ASSISTANT to reconcile
[2019-07-12] MEDS ORDERED: IV NORMAL SALINE 500 ML IV ONE (08:52)
[2019-07-12 09:20] LABS: *BILIRUBIN,URIN NEGATIVE (NEGATIVE); *CLARITY,URINE CLOUDY (CLEAR); *COLOR,URINE YELLOW (YELLOW); *KETONES,URINE NEGATIVE (NEGATIVE); LEUKOCYTE ESTERASE ,URINE 2+ (NEGATIVE); NITRITE, URINE POSITIVE (NEGATIVE); PH,URINE 8.5 (5.0-8.0); UGLUCOSE NEGATIVE (NEGATIVE)
[2019-07-12 09:21] LABS: BASOPHILS % (AUTO) 0.8 % (0.0-2.0); EOSINOPHILS % (AUTO) 0.3 % (0.0-7.0); HEMATOCRIT 35.7 % (31.2-41.9); HEMOGLOBIN 11.4 g/dL (10.9-14.3); LYMPHOCYTES % (AUTO) 20.1 % (20.5-51.5); MEAN CORPUSCULAR HEMOGLOBIN 27.6 uug (24.7-32.8); MEAN CORPUSCULAR HGB CONC 32 g/dL (32.3-35.6); MEAN CORPUSCULAR VOLUME 86.5 fL (75.5-95.3); MONOCYTES # (AUTO) 0.7 K/uL (2.0-10.0); MONOCYTES % (AUTO) 13.2 % (0.0-11.0); NEUTROPHILS # (AUTO) 3.4 K/uL (1.8-8.9); NEUTROPHILS % (AUTO) 65.6 % (38.5-71.5); PLATELET COUNT (AUTO) 197 K/uL (179-408); RED BLOOD CELL COUNT(AUTO) 4.12 MIL/uL (3.63-4.92); WHITE BLOOD COUNT (AUTO) 5.1 K/uL (3.8-11.8)
[2019-07-12 09:29] LABS: *BLOOD, URINE TRACE (NEGATIVE)
[2019-07-12 09:36] LABS: BACTERIA,URINE MANY /HPF (NONE SEEN); SQUAMOUS EPITHELIAL CELL,UR FEW /HPF (NONE SEEN)
[2019-07-12 09:37] LABS: TRIPLE PHOSPHATE CRYSTAL,UR MANY /HPF (NONE SEEN); URINE AMORPHOUS PHOSPHATES MODERATE /HPF
[2019-07-12] MEDS ORDERED: MEROPENEM 1GM/NS 100ML IVPB **ER PYXIS ONLY IV ONE (09:39)
[2019-07-12] MEDS ORDERED: MEROPENEM 1,000 MG in IV NORMAL SALINE 100 ML IV ONE (09:45)
[2019-07-12 09:51] LABS: CARBON DIOXIDE 33 mmol/L (21-32); CHLORIDE 102 mmol/L (98-107); CREATININE 0.4 mg/dL (0.6-1.3); GLUCOSE 133 mg/dL (74-106); POTASSIUM 3.9 mmol/L (3.5-5.1); UREA NITROGEN, BLOOD 22 mg/dL (7-18)
[2019-07-12 10:04] LABS: ALANINE AMINOTRANSFERASE 7 U/L (14-59); ALKALINE PHOSPHATASE 38 U/L (50-136); ASPARTATE AMINOTRANSFERASE 21 U/L (15-37); BILIRUBIN,TOTAL 0.3 mg/dL (0.2-1.0); TOTAL PROTEIN, SERUM 7.5 g/dL (6.4-8.2)
--- NOTE | 2019-07-12 10:24 | NUR ---
CALLED LEFT MESSAGE WITH [facility] WAITING FOR CALL BACK WENCESLAO HIDALGO.
--- NOTE | 2019-07-12 11:17 | NUR ---
DNP WENCESLAO AT BEDSIDE WITH PATIENT.
[2019-07-12] MEDS ORDERED: HYDROXYCHLOROQUINE SULFATE 200 MG TABLET PO SCH (12:00)
[2019-07-12] MEDS ORDERED: AZITHROMYCIN IV 500 MG in IV DEXTROSE 5% 250 ML IV SCH (12:00)
[2019-07-12] MEDS ORDERED: ONDANSETRON 4 MG/2 ML VIAL IV PRN (12:00)
[2019-07-12] MEDS ORDERED: INSULIN REGULAR, HUMAN 300 UNIT/3 ML VIAL SQ PRN (12:00)
[2019-07-12] MEDS ORDERED: DEXTROSE 50% 50 ML DISP.SYRIN IV PRN (12:00)
--- NOTE | 2019-07-12 13:15 | NUR ---
Pt arrived in RM 206 via stretcher. Pt awake but confused, not answering questions and not following commands and just kept groaning. On O2 @ 2L sat 99% and no distress noted. IV on left hand 20g H/L flushed and patent. Abdomen distended with Gtube in place, flushed and patent. Hancock catheter in place but noticed urine on the pad, checked with Yamileth SUE and reinflated balloon, will monitor for leaking. Per ER report, sacral stage II pressure ulcer, picture taken in chart, replace Mepilex. Bed locked in lowest position with siderails 2x up. Will continue to monitor.
--- NOTE | 2019-07-12 13:15 | NUR ---
vitals during admission BP- 111/51, HR- 75, RR- 18, T- 97.4 axillary, 99% O2 @ 2L
[2019-07-12] MEDS ORDERED: HYDROXYCHLOROQUINE 200 MG/8 ML SUSPENSION GT ONE (14:00)
[2019-07-12 14:43] VITALS: BP 111/51
[2019-07-12 14:50] LABS: FERRITIN 1278 ng/mL (8-252); LACTATE DEHYDROGENASE 147 U/L (81-234)
[2019-07-12] MEDS: BLOOD SUGAR DIAGNOSTIC 1 EACH STRIP VI SCH ×2 (15:03→18:45)
[2019-07-12 16:25] VITALS: BP_SYST 115; BP_SYST 149; BP_DIAS 56; BP_DIAS 84
[2019-07-12] MEDS: MEROPENEM 0.5 G in IV NORMAL SALINE 50 ML IV SCH (18:18)
--- NOTE | 2019-07-12 20:00 | NUR ---
PATIENT RECEIVED INTO CARE LAYING IN BED RESTING. PATIENT IS NONVERBAL AND ORIENTATION CANNOT BE DETERMINED. PATIENT HAS NO S/S OF ACUTE DISTRESS/DISCOMFORT NOTED OR OBSERVED BY NURSE. ALL SAFETY, FALL, AND ISOLATION PRECAUTIONS ARE IN PLACE. CALL LIGHT AND PERSONAL ITEMS ARE WITHIN REACH AT ALL TIMES. WILL CONTINUE TO MONITOR AND ASSESS.
[2019-07-12 20:03] VITALS: BP 99/52
[2019-07-12] MEDS: ENOXAPARIN SODIUM 40 MG/0.4 ML DISP.SYRIN SQ SCH (20:37)
[2019-07-13 00:30] VITALS: BP 107/41
[2019-07-13] MEDS: MEROPENEM 0.5 G in IV NORMAL SALINE 50 ML IV SCH ×3 (01:45→17:35)
[2019-07-13] MEDS: GLUCERNA 1.2 1000ML LIQUID GT PRN (02:56)
[2019-07-13 04:50] VITALS: BP 116/55
[2019-07-13] MEDS: BLOOD SUGAR DIAGNOSTIC 1 EACH STRIP VI SCH ×5 (05:45→23:56)
--- NOTE | 2019-07-13 06:00 | NUR ---
PATIENT SLEPT INTERMITTENTLY THROUGHOUT NIGHT WITH NO S/S OF ACUTE DISTRESS OR DISCOMFORT NOTED/OBSERVED BY NURSE. ALL PRESCRIBED MEDICATIONS PROVIDED ORDERED AND TOLERATED WELL, WITH NO ADVERSE SIDE EFFECTS NOTED/OBSERVED BY NURSE. ALL PATIENT NEEDS ATTENDED TO AND PATIENT IS WARM, DRY, AND COMFORTABLE. FEEDING PUMP IN ROOM IS BROKEN AND WILL NEED TO BE REPLACED - WILL ENDORSE TO AM SHIFT CALL LIGHT AND PERSONAL ITEMS REMAIN WITHIN REACH. ALL SAFETY, FALL, AND ISOLATION PRECAUTIONS REMAIN IN EFFECT.
[2019-07-13 06:24] LABS: BASOPHILS # (AUTO) 0.1 K/uL (0.0-8.0); EOSINOPHILS % (AUTO) 0.7 % (0.0-7.0); HEMATOCRIT 34.1 % (31.2-41.9); HEMOGLOBIN 11.1 g/dL (10.9-14.3); LYMPHOCYTES # (AUTO) 0.7 K/uL (20.0-40.0); LYMPHOCYTES % (AUTO) 12.6 % (20.5-51.5); MEAN CORPUSCULAR HEMOGLOBIN 28.5 uug (24.7-32.8); MEAN CORPUSCULAR HGB CONC 33 g/dL (32.3-35.6); MEAN CORPUSCULAR VOLUME 87.4 fL (75.5-95.3); MONOCYTES # (AUTO) 0.7 K/uL (2.0-10.0); MONOCYTES % (AUTO) 12.7 % (0.0-11.0); PLATELET COUNT (AUTO) 180 K/uL (179-408); WHITE BLOOD COUNT (AUTO) 5.4 K/uL (3.8-11.8)
[2019-07-13 07:34] LABS: BILIRUBIN,TOTAL 0.4 mg/dL (0.2-1.0); CREATININE 0.6 mg/dL (0.6-1.3); TOTAL PROTEIN, SERUM 7.3 g/dL (6.4-8.2)
[2019-07-13 08:10] LABS: THYROID STIMULATING HORMONE 1.893 mIU/mL (0.358-3.740)
[2019-07-13] MEDS ORDERED: HYDROXYCHLOROQUINE SULFATE 200 MG TABLET PO SCH (09:00)
[2019-07-13] MEDS ORDERED: BISACODYL 10 MG SUPP.RECT RC PRN (10:45)
[2019-07-13] MEDS: HYDROXYCHLOROQUINE 200 MG/8 ML SUSPENSION GT SCH (11:49)
[2019-07-13 12:31] VITALS: BP 139/76
[2019-07-13] MEDS: ACETAMINOPHEN 650 MG/20.3 ML LIQUID UDC GT PRN (14:09)
[2019-07-13 16:00] VITALS: BP 105/58
--- NOTE | 2019-07-13 16:26 | NUR ---
Patient in bed intermittently sleeping throughout shift, Pt. is non verbal but moans at time. NO acute distress noted. Pt. is on O2 NC at 2lpm 02 sating at 95%. Vital signs stable for patient. HOB elevated for aspiration precaution. GT feeding running as ordered. IV on left hand intact and patent. Pt. on IV ATB therapy, administered as ordered. F/C in place and intact. Skin kept clean and dry. Made comfortable, safety measures in place and will continue with care.
--- NOTE | 2019-07-13 20:00 | NUR ---
Patient received into care, sitting up in bed resting. Patient is non-verbal and is alert/oriented x1 with no s/s of acute distress or discomfort at this time. IV site is patent and intact and running TKO at 5mL/hr. Glucerna 1.2 GT feeding is running at 65cc/hr and patient is tolerating well, with no residual at this time. New Hancock catheter is draining well. All safety, fall, allergy, and isolation precautions are in place. Call light and personal items are within reach at all times. Will continue to monitor and assess.
[2019-07-13 20:07] VITALS: BP 128/71
[2019-07-13] MEDS: ATORVASTATIN 10 MG TABLET GT SCH (21:37)
[2019-07-13] MEDS: ZOLPIDEM 5 MG TABLET GT PRN (21:38)
[2019-07-13] MEDS: ENOXAPARIN SODIUM 40 MG/0.4 ML DISP.SYRIN SQ SCH (21:47)
[2019-07-14 00:40] VITALS: BP 127/67
[2019-07-14] MEDS: MEROPENEM 0.5 G in IV NORMAL SALINE 50 ML IV SCH ×3 (02:04→17:50)
[2019-07-14 04:20] VITALS: BP 120/64
[2019-07-14] MEDS: BLOOD SUGAR DIAGNOSTIC 1 EACH STRIP VI SCH ×4 (05:15→23:12)
--- NOTE | 2019-07-14 06:00 | NUR ---
Patient slept intermittently throughout night with several periods of moaning but with no s/s of acute distress or discomfort noted/observed by this nurse. All prescribed medications provided as ordered with no adverse side effects noted/observed by nurse. Oral care was provided and all nursing needs were met promptly and patient is warm, dry, and comfortable. All safety, fall, allergy, and isolation precautions remain in effect. All personal items and call light are within reach at all times.
--- NOTE | 2019-07-14 06:15 | NUR ---
This nurse found patient's left hand IV cath dislodged. New IV cath inserted on right forearm 20g.
[2019-07-14 06:29] LABS: BASOPHILS % (AUTO) 0.4 % (0.0-2.0); EOSINOPHILS % (AUTO) 0.2 % (0.0-7.0); HEMATOCRIT 32.6 % (31.2-41.9); HEMOGLOBIN 10.6 g/dL (10.9-14.3); LYMPHOCYTES # (AUTO) 0.7 K/uL (20.0-40.0); LYMPHOCYTES % (AUTO) 20.8 % (20.5-51.5); MEAN CORPUSCULAR HEMOGLOBIN 27.8 uug (24.7-32.8); MEAN CORPUSCULAR HGB CONC 32 g/dL (32.3-35.6); MEAN CORPUSCULAR VOLUME 85.9 fL (75.5-95.3); MONOCYTES # (AUTO) 0.6 K/uL (2.0-10.0); MONOCYTES % (AUTO) 19.7 % (0.0-11.0); NEUTROPHILS # (AUTO) 1.8 K/uL (1.8-8.9); NEUTROPHILS % (AUTO) 58.9 % (38.5-71.5); PLATELET COUNT (AUTO) 171 K/uL (179-408); RED BLOOD CELL COUNT(AUTO) 3.79 MIL/uL (3.63-4.92); WHITE BLOOD COUNT (AUTO) 3.1 K/uL (3.8-11.8)
[2019-07-14 06:58] LABS: BILIRUBIN,TOTAL 0.4 mg/dL (0.2-1.0); CREATININE 0.6 mg/dL (0.6-1.3); MAGNESIUM 2.2 mg/dL (1.8-2.4); PHOSPHOROUS 3.2 mg/dL (2.5-4.9); POTASSIUM 3.9 mmol/L (3.5-5.1); TOTAL PROTEIN, SERUM 7.2 g/dL (6.4-8.2)
[2019-07-14 08:32] LABS: BAND % (MANUAL) 2 % (0-10); LYMPHOCYTES % (MANUAL) 23 % (20-40); MONOCYTES % (MANUAL) 19 % (2-10); NEUTROPHILS % (MANUAL) 56 % (42-75)
[2019-07-14 08:40] VITALS: BP 126/64
[2019-07-14] MEDS: ASPIRIN 81 MG TAB.CHEW GT SCH (09:39)
[2019-07-14] MEDS: FUROSEMIDE 20 MG TABLET GT SCH (09:39)
[2019-07-14] MEDS: ACETAMINOPHEN 650 MG/20.3 ML LIQUID UDC GT PRN ×2 (10:44→18:05)
[2019-07-14] MEDS: HYDROXYCHLOROQUINE 200 MG/8 ML SUSPENSION GT SCH (12:12)
[2019-07-14] MEDS: GLUCERNA 1.2 1000ML LIQUID GT PRN (18:25)
[2019-07-14 18:27] VITALS: BP 124/80
--- NOTE | 2019-07-14 19:46 | NUR ---
No acute distress or SOB throughout this shift. Pt AAOx1, moaning frequently. Tylenol administered for comfort. Glucerna 1.2 GT feeding replaced along with tubing. Minimal residual found. Hancock catheter intact, draining well, care provided. IV right forearm intact, flushed, and patent. All comfort and safety measures implemented. VSS. BS 105, no coverage needed. Call light within reach. Needs endorsed to shift engineer.
[2019-07-14 20:00] VITALS: BP 110/62
[2019-07-14] MEDS: ATORVASTATIN 10 MG TABLET GT SCH (21:14)
[2019-07-14] MEDS: ENOXAPARIN SODIUM 40 MG/0.4 ML DISP.SYRIN SQ SCH (21:25)
[2019-07-15] VITALS (7 sets, daily range): BP systolic 98–123; BP diastolic 49–78
[2019-07-15] MEDS: MEROPENEM 0.5 G in IV NORMAL SALINE 50 ML IV SCH ×3 (02:14→17:49)
[2019-07-15] MEDS: BLOOD SUGAR DIAGNOSTIC 1 EACH STRIP VI SCH ×3 (05:40→17:49)
--- NOTE | 2019-07-15 06:29 | NUR ---
Patient slept intermittently. On O2 at 2lpm via NC saturation at 97-98%. Patient is A&Ox1 w/ episodes of moaning. SR on Tele monitor. Remains afebrile this shift. IV on RFA 22g intact and patent. On GT feeding Glucerna 1.2 at 65cc/hr, tolerated well, no residuals. F/C intact and draining nico colored urine. Turned and repositioned. Will endorse accordingly
[2019-07-15] MEDS: HYDROCODONE/APAP 5-325MG TABLET GT PRN (06:48)
--- NOTE | 2019-07-15 07:10 | NUR ---
Received patient resting in bed, A/O x1 with episodes of moaning. No S/S of acute distress or pain. bed in lowest position, side rails up x2, call light within reach. Will continue to monitor.
[2019-07-15 07:54] LABS: BASOPHILS % (AUTO) 0.4 % (0.0-2.0); EOSINOPHILS % (AUTO) 0.5 % (0.0-7.0); HEMATOCRIT 29.7 % (31.2-41.9); HEMOGLOBIN 9.8 g/dL (10.9-14.3); LYMPHOCYTES # (AUTO) 0.3 K/uL (20.0-40.0); LYMPHOCYTES % (AUTO) 13.1 % (20.5-51.5); MEAN CORPUSCULAR HEMOGLOBIN 28.2 uug (24.7-32.8); MEAN CORPUSCULAR HGB CONC 33 g/dL (32.3-35.6); MEAN CORPUSCULAR VOLUME 85.8 fL (75.5-95.3); MONOCYTES # (AUTO) 0.3 K/uL (2.0-10.0); MONOCYTES % (AUTO) 12.9 % (0.0-11.0); NEUTROPHILS # (AUTO) 1.9 K/uL (1.8-8.9); NEUTROPHILS % (AUTO) 73.1 % (38.5-71.5); PLATELET COUNT (AUTO) 148 K/uL (179-408); RED BLOOD CELL COUNT(AUTO) 3.46 MIL/uL (3.63-4.92); WHITE BLOOD COUNT (AUTO) 2.5 K/uL (3.8-11.8)
[2019-07-15 08:11] LABS: CREATININE 0.6 mg/dL (0.6-1.3); PHOSPHOROUS 3.4 mg/dL (2.5-4.9); POTASSIUM 4.2 mmol/L (3.5-5.1)
[2019-07-15] MEDS: FUROSEMIDE 20 MG TABLET GT SCH (09:14)
[2019-07-15] MEDS: ASPIRIN 81 MG TAB.CHEW GT SCH (09:14)
[2019-07-15] MEDS: GLUCERNA 1.2 1000ML LIQUID GT PRN (10:01)
--- NOTE | 2019-07-15 11:40 | NUR ---
WOUND CARE CONSULT: REVIEWED CHART, NURSING DOCUMENTATION AND PHOTOS WHICH SHOW SACRAL AND LEFT BUTTOCK WOUNDS (AT LEAST PARTIAL THICKNESS), PRESENT ON ADMISSION. RECOMMENDATIONS MADE FOR SKIN PROTECTION AND WOUND CARE. DISCUSSED WITH NURSING STAFF. FIRST STEP LOW AIRLOSS MATTRESS ON ORDER. MD IN AGREEMENT WITH PLAN OF CARE. WILL SEE PRN.
[2019-07-15] MEDS ORDERED: Z GUARD REMEDY PASTE 57 GM TUBE TOP PRN (11:45)
[2019-07-15] MEDS: HYDROXYCHLOROQUINE 200 MG/8 ML SUSPENSION GT SCH (12:12)
--- NOTE | 2019-07-15 18:17 | NUR ---
Patient rested intermittently throughout day, pt had episodes of moaning, pain medication administered and off loading. No S/S of acute distress. Patient tolerating tube feeding, no residuals. EKG performed for monitoring of QTC interval. Safety measures provided. Will endorse to oncoming nurse.
--- NOTE | 2019-07-15 19:20 | NUR ---
Received patient resting in bed, A/O x1 with frequent episodes of moaning. No S/S of acute distress or pain. Bed in lowest position, side rails up x2, call light within reach. Will continue to monitor.
[2019-07-15] MEDS: ATORVASTATIN 10 MG TABLET GT SCH (20:53)
[2019-07-15] MEDS: ACETAMINOPHEN 650 MG/20.3 ML LIQUID UDC GT PRN (20:53)
[2019-07-15] MEDS: ZOLPIDEM 5 MG TABLET GT PRN (20:53)
[2019-07-15] MEDS: ENOXAPARIN SODIUM 40 MG/0.4 ML DISP.SYRIN SQ SCH (20:54)
[2019-07-15] MEDS: Z GUARD REMEDY PASTE 57 GM TUBE TOP SCH (20:55)
--- NOTE | 2019-07-15 21:00 | NUR ---
Administered Tylenol and Ambien to help the patient rest as she is moaning quite frequently. Suctioned orally due to copious secretions, which seemed to help her relax a bit.
--- NOTE | 2019-07-15 22:40 | NUR ---
Patient is resting well. No more moaning and she is sleeping. Will continue to monitor.
[2019-07-16] MEDS: BLOOD SUGAR DIAGNOSTIC 1 EACH STRIP VI SCH ×2 (00:16→06:51)
[2019-07-16] MEDS: MEROPENEM 0.5 G in IV NORMAL SALINE 50 ML IV SCH ×3 (02:17→18:45)
[2019-07-16 04:00] VITALS: BP 108/45
[2019-07-16 06:29] LABS: LYMPHOCYTES # (AUTO) 0.9 K/uL (20.0-40.0); MONOCYTES # (AUTO) 0.3 K/uL (2.0-10.0); NEUTROPHILS # (AUTO) 1.9 K/uL (1.8-8.9)
[2019-07-16 06:40] LABS: ALANINE AMINOTRANSFERASE 17 U/L (14-59); ALKALINE PHOSPHATASE 35 U/L (50-136); ASPARTATE AMINOTRANSFERASE 19 U/L (15-37); BILIRUBIN,TOTAL 0.6 mg/dL (0.2-1.0); CARBON DIOXIDE 33 mmol/L (21-32); CHLORIDE 103 mmol/L (98-107); CREATININE 0.5 mg/dL (0.6-1.3); FERRITIN 940 ng/mL (8-252); GLUCOSE 113 mg/dL (74-106); PHOSPHOROUS 3.4 mg/dL (2.5-4.9); POTASSIUM 4.2 mmol/L (3.5-5.1); TOTAL PROTEIN, SERUM 6.7 g/dL (6.4-8.2); UREA NITROGEN, BLOOD 17 mg/dL (7-18)
[2019-07-16 06:48] LABS: BASOPHILS % (AUTO) 0.3 % (0.0-2.0); EOSINOPHILS % (AUTO) 0.8 % (0.0-7.0); HEMOGLOBIN 10.2 g/dL (10.9-14.3); LYMPHOCYTES % (AUTO) 27.7 % (20.5-51.5); MEAN CORPUSCULAR HEMOGLOBIN 27.7 uug (24.7-32.8); MEAN CORPUSCULAR HGB CONC 32 g/dL (32.3-35.6); MONOCYTES % (AUTO) 10.7 % (0.0-11.0); NEUTROPHILS % (AUTO) 60.5 % (38.5-71.5); PLATELET COUNT (AUTO) 140 K/uL (179-408); RED BLOOD CELL COUNT(AUTO) 3.68 MIL/uL (3.63-4.92)
[2019-07-16 06:49] LABS: WHITE BLOOD COUNT (AUTO) 3.2 K/uL (3.8-11.8)
[2019-07-16] MEDS: Z GUARD REMEDY PASTE 57 GM TUBE TOP SCH (09:00)
[2019-07-16 10:00] VITALS: BP 116/67
[2019-07-16] MEDS: FUROSEMIDE 20 MG TABLET GT SCH (10:11)
[2019-07-16] MEDS: ASPIRIN 81 MG TAB.CHEW GT SCH (10:11)
[2019-07-16] MEDS: GLUCERNA 1.2 1000ML LIQUID GT PRN (10:17)
[2019-07-16] MEDS: HYDROCODONE/APAP 5-325MG TABLET GT PRN ×2 (10:17→18:06)
[2019-07-16] MEDS: HYDROXYCHLOROQUINE 200 MG/8 ML SUSPENSION GT SCH (12:08)
[2019-07-16 13:13] VITALS: BP 98/55
[2019-07-16 16:58] VITALS: BP 144/66
--- NOTE | 2019-07-16 19:45 | NUR ---
Received pt HOB elevated, on specialty mattress. Pt unable to track or follow commands. Pt continues to moan. Pt on 3L NC with O2 sats up to 94%. No acute distress noted. NSR on monitor. F/C in place and intact. Continue GTUBE feedings. Q2H repositioning. AM care rendered. Kept clean and dry. Safety precautions maintained. Tylenol given x1 to maintain temp levels. Continue plan of care. Addendum: 07/17/19 at 0545 by MICHAEL MORATAYA RN WRONG TIME DOCUMENTED FOR CORRECT TIME AT 0535
--- NOTE | 2019-07-16 19:49 | NUR ---
Patient was moaning through most of the morning but settled with norco. Patient was frequently repositioned, and kept dry. Patient later started moaning again and resolved with [place]. Patient continues to be on air mattress, yuen draining, and oxygen via nasal cannula. All needs met, and tolerating tube feeding.
[2019-07-16 20:00] VITALS: BP 147/63
[2019-07-16] MEDS: ENOXAPARIN SODIUM 40 MG/0.4 ML DISP.SYRIN SQ SCH (20:54)
[2019-07-16] MEDS: ZOLPIDEM 5 MG TABLET GT PRN (22:00)
[2019-07-17] VITALS: BP 120/69
[2019-07-17] MEDS: Z GUARD REMEDY PASTE 57 GM TUBE TOP SCH ×3 (00:23→21:25)
[2019-07-17] MEDS: MEROPENEM 0.5 G in IV NORMAL SALINE 50 ML IV SCH ×2 (01:30→09:27)
[2019-07-17] MEDS: ACETAMINOPHEN 650 MG/20.3 ML LIQUID UDC GT PRN ×2 (03:30→21:25)
[2019-07-17 04:00] VITALS: BP 158/81
--- NOTE | 2019-07-17 05:44 | NUR ---
DOCUMENTED WRONG TIME CORRECT TIME AT 0535 Addendum: 07/17/19 at 0545 by MIHCAEL MORATAYA RN WRONG DOCUMENTED TIME FOR 1944 NOTE
[2019-07-17 06:41] LABS: BASOPHILS % (AUTO) 0.2 % (0.0-2.0); EOSINOPHILS % (AUTO) 0.1 % (0.0-7.0); HEMATOCRIT 29.7 % (31.2-41.9); HEMOGLOBIN 9.6 g/dL (10.9-14.3); LYMPHOCYTES # (AUTO) 0.2 K/uL (20.0-40.0); LYMPHOCYTES % (AUTO) 5.1 % (20.5-51.5); MEAN CORPUSCULAR HEMOGLOBIN 28.2 uug (24.7-32.8); MEAN CORPUSCULAR HGB CONC 32 g/dL (32.3-35.6); MONOCYTES # (AUTO) 0.3 K/uL (2.0-10.0); MONOCYTES % (AUTO) 7.2 % (0.0-11.0); NEUTROPHILS # (AUTO) 3.7 K/uL (1.8-8.9); NEUTROPHILS % (AUTO) 87.4 % (38.5-71.5); PLATELET COUNT (AUTO) 135 K/uL (179-408); RED BLOOD CELL COUNT(AUTO) 3.42 MIL/uL (3.63-4.92); WHITE BLOOD COUNT (AUTO) 4.3 K/uL (3.8-11.8)
[2019-07-17 07:05] LABS: CARBON DIOXIDE 32 mmol/L (21-32); CHLORIDE 103 mmol/L (98-107); CREATININE 0.4 mg/dL (0.6-1.3); GLUCOSE 168 mg/dL (74-106); MAGNESIUM 1.8 mg/dL (1.8-2.4); PHOSPHOROUS 3.4 mg/dL (2.5-4.9); POTASSIUM 3.7 mmol/L (3.5-5.1); UREA NITROGEN, BLOOD 16 mg/dL (7-18)
--- NOTE | 2019-07-17 07:30 | NUR ---
Received patient in bed, awake, confused, not able to track but withdraws to pain. No signs of distress seen at this time. Rt. FC TKO in place and flushed. Safety and fall prevention in place. Call light in reach, bed in low and locked position. All needs met at this time. Will continue to monitor.
[2019-07-17] MEDS: FUROSEMIDE 20 MG TABLET GT SCH (09:27)
[2019-07-17] MEDS: ASPIRIN 81 MG TAB.CHEW GT SCH (09:27)
[2019-07-17] MEDS: GLUCERNA 1.2 1000ML LIQUID GT PRN (11:04)
[2019-07-17 12:00] VITALS: BP 98/35
[2019-07-17 16:04] VITALS: BP 109/46
[2019-07-17] MEDS: HYDROCODONE/APAP 5-325MG TABLET GT PRN (17:44)
--- NOTE | 2019-07-17 18:58 | NUR ---
Patient in bed, awake, confused, not able to track but withdraws to pain. No signs of distress seen through the shift. Rt. FC TKO in place and flushed. Safety and fall prevention in place. Call light in reach, bed in low and locked position. All needs met at this time. Will report to oncoming nurse.
--- NOTE | 2019-07-17 19:20 | NUR ---
RECEIVED PT IN NO ACUTE RESPIRATORY DISTRESS. IV INTACT. GTUBE INTACT AND PT TOLERATING IT WELL. PIKE INTACT AND DRAINING YANELI COLORED URINE. SAFETY AND COMFORT PROVIDED. WILL CONTINUE TO MONITOR.
--- NOTE | 2019-07-17 19:30 | NUR ---
RECEIVED PT IN NO ACUTE DISTRESS. IV INTACT. GTUBE DRAINING WELL. PT CAN MAKE HIS NEEDS KNOWN. SAFETY AND COMFORT PROVIDED. WILL CONTINUE TO MONITOR. Addendum: 07/17/19 at 2302 by MARNI BROWN RN WRONG PT
[2019-07-17 20:00] VITALS: BP 113/54
[2019-07-17] MEDS: ENOXAPARIN SODIUM 40 MG/0.4 ML DISP.SYRIN SQ SCH (21:26)
[2019-07-17 23:09] LABS: *BILIRUBIN,URIN NEGATIVE (NEGATIVE); *BLOOD, URINE 2+ (NEGATIVE); *COLOR,URINE YELLOW (YELLOW); *KETONES,URINE NEGATIVE (NEGATIVE); LEUKOCYTE ESTERASE ,URINE TRACE (NEGATIVE); NITRITE, URINE NEGATIVE (NEGATIVE); UGLUCOSE NEGATIVE (NEGATIVE)
[2019-07-17 23:42] LABS: *CLARITY,URINE HAZY (CLEAR)
[2019-07-17 23:45] LABS: RBC,URINE 50-80 /HPF (0-3)
[2019-07-17 23:46] LABS: BACTERIA,URINE MODERATE /HPF (NONE SEEN); MUCUS,URINE FEW /LPF (0-FEW); SQUAMOUS EPITHELIAL CELL,UR FEW /HPF (NONE SEEN); YEAST,URINE MODERATE /HPF (NONE SEEN)
[2019-07-18 00:22] VITALS: BP 125/58
[2019-07-18] MEDS: ZOLPIDEM 5 MG TABLET GT PRN ×2 (02:36→23:32)
[2019-07-18] MEDS: ACETAMINOPHEN 650 MG/20.3 ML LIQUID UDC GT PRN ×3 (02:36→23:56)
[2019-07-18] MEDS: GLUCERNA 1.2 1000ML LIQUID GT PRN ×2 (02:58→23:34)
[2019-07-18 04:30] VITALS: BP 119/80
--- NOTE | 2019-07-18 06:28 | NUR ---
PT SLEPT INTERMITTENTLY. PT IN NO ACUTE DISTRESS. IV INTACT. PIKE INTACT AND DRAINING WELL. GTUBE INTACT AND PT TOLERATING IT WELL. PRESCRIBED MEDICATION GIVEN AND PT TOLERATED IT WELL. PT GIVEN TYLENOL AT 2125H AND 0236H FOR PAIN. PT TOLERATED IT WELL. PT VS WNL.SAFETY AND COMFORT PROVIDED. PT TURNED AND REPOSITIONED. ALL NEEDS ARE MET.WILL ENDORSE TO INCOMING NURSE FOR CONTINUITY OF CARE.
[2019-07-18 06:51] LABS: BASOPHILS % (AUTO) 0.3 % (0.0-2.0); EOSINOPHILS # (AUTO) 0.1 K/uL (0.0-0.7); EOSINOPHILS % (AUTO) 1.6 % (0.0-7.0); HEMATOCRIT 29.1 % (31.2-41.9); HEMOGLOBIN 9.4 g/dL (10.9-14.3); LYMPHOCYTES # (AUTO) 0.4 K/uL (20.0-40.0); LYMPHOCYTES % (AUTO) 8.9 % (20.5-51.5); MEAN CORPUSCULAR HGB CONC 33 g/dL (32.3-35.6); MEAN CORPUSCULAR VOLUME 86.3 fL (75.5-95.3); MONOCYTES # (AUTO) 0.2 K/uL (2.0-10.0); MONOCYTES % (AUTO) 5.6 % (0.0-11.0); NEUTROPHILS # (AUTO) 3.5 K/uL (1.8-8.9); NEUTROPHILS % (AUTO) 83.6 % (38.5-71.5); PLATELET COUNT (AUTO) 127 K/uL (179-408); RED BLOOD CELL COUNT(AUTO) 3.37 MIL/uL (3.63-4.92); WHITE BLOOD COUNT (AUTO) 4.1 K/uL (3.8-11.8)
[2019-07-18 07:10] LABS: CREATININE 0.6 mg/dL (0.6-1.3); PHOSPHOROUS 2.9 mg/dL (2.5-4.9); POTASSIUM 3.9 mmol/L (3.5-5.1)
[2019-07-18 08:00] VITALS: BP 145/62
[2019-07-18] MEDS: FUROSEMIDE 20 MG TABLET GT SCH (08:25)
[2019-07-18] MEDS: ASPIRIN 81 MG TAB.CHEW GT SCH (08:25)
--- NOTE | 2019-07-18 09:00 | NUR ---
Received patient in bed. open eyes. No signs of distress noted. ON Oxygen at 3L/min, saturating 98%. No SOB. Moaning constantly. Gtube intact and patent. No residual noted. Patient noted with Sacrococcyx Pressure ulcer and Left Buttock wound, No bleeding noted. changed dressing as ordered. kept clean and comfortable. Will continue to monitor.
[2019-07-18] MEDS: Z GUARD REMEDY PASTE 57 GM TUBE TOP SCH ×2 (09:07→21:07)
[2019-07-18] MEDS: HYDROCODONE/APAP 5-325MG TABLET GT PRN (09:27)
[2019-07-18] MEDS: FLUCONAZOLE 200 MG/NS 100ML IV 100 MG in PREMIXED 1 EACH IV SCH (12:41)
[2019-07-18 16:00] VITALS: BP 119/52
--- NOTE | 2019-07-18 18:12 | NUR ---
Patient in bed, open eyes, on Oxygen at 2L via Nasal Canula, saturating 99%. Patient constantly Moaning, gave [place] 5/325mg x 1. Turned and repositioned Q 2HRS, Treatment in Progress on Sacral Pressure Sore and Left Buttocks wound. Patient noted with temperature of 100.5F, Tylenol 650mg given as ordered. Gtube intact and patent, Kept HOB elevated at all times. kept clean and comfortable. Will endorse to Oncoming Nurse.
[2019-07-18 20:00] VITALS: BP 123/53
--- NOTE | 2019-07-18 20:00 | NUR ---
Received patient awake. Patient shows no signs or symptoms of distress at this time. Had fever of 100.5 during dayshift. Temp rechecked and is 98.7. Vital signs stable. O2 saturation is 94% on 2L. NSR on tele monitor. Isolation for COVID-19. Bed set to lowest position. Call light within reach. Will continue to monitor patient.
[2019-07-18] MEDS: ENOXAPARIN SODIUM 40 MG/0.4 ML DISP.SYRIN SQ SCH (21:06)
[2019-07-18 23:57] VITALS: BP 139/63
--- NOTE | 2019-07-19 00:04 | NUR ---
Temperature checked and is 100.7. Tylenol given as per MD order. Will continue to monitor patient.
[2019-07-19 04:00] VITALS: BP 123/54
--- NOTE | 2019-07-19 06:17 | NUR ---
Patient shows no signs or symptoms of distress at this time. Patient's O2 saturation is 95% on 2L NC. Vital signs stable. Hancock is leaking. Catheter balloon was deflated and catheter was advanced. Will continue to monitor patient.
[2019-07-19 08:00] VITALS: BP 138/53
[2019-07-19] MEDS: FUROSEMIDE 20 MG TABLET GT SCH (08:00)
[2019-07-19] MEDS: HYDROCODONE/APAP 5-325MG TABLET GT PRN ×3 (08:00→21:27)
[2019-07-19] MEDS: ASPIRIN 81 MG TAB.CHEW GT SCH (08:00)
--- NOTE | 2019-07-19 08:00 | NUR ---
Patient in bed, open eyes, constantly moaning. No signs of distress noted. On Oxygen at 2LPM via Nasal Canula, saturating 96%. GTube intact and patent. Kept clean and comfortable. remains on contact and droplet Isolation for Positive covid 19. Proper PPE strictly Observed. Will continue to monitor.
--- NOTE | 2019-07-19 09:00 | NUR ---
Patient Hancock catheter is leaking, Reinsert Hancock Catheter F18/10.
[2019-07-19] MEDS: Z GUARD REMEDY PASTE 57 GM TUBE TOP SCH ×2 (09:15→21:28)
[2019-07-19] MEDS: FLUCONAZOLE 200 MG/NS 100ML IV 100 MG in PREMIXED 1 EACH IV SCH (11:37)
[2019-07-19 16:00] VITALS: BP 106/46
--- NOTE | 2019-07-19 18:09 | NUR ---
Patient in bed, Open eyes, On Oxygen at 2LPM saturating 96%. Constantly moaning, [place] 5/325mg given x2. Gtube intact and patent. Kept HOB elevated at all times. kept clean and comfortable. treatment in progress to sacrum Pressure sore and Left buttock wound. turned and repositioned q2hrs. Will endorse to Oncoming Nurse.
[2019-07-19 20:36] VITALS: BP 141/66
[2019-07-19] MEDS: CARBIDOPA/LEVODOPA CR 25-100MG TABLET.SA PO SCH (21:27)
[2019-07-19] MEDS: ENOXAPARIN SODIUM 40 MG/0.4 ML DISP.SYRIN SQ SCH (21:29)
[2019-07-19] MEDS: GLUCERNA 1.2 1000ML LIQUID GT PRN (21:40)
[2019-07-20 00:36] VITALS: BP 104/41
[2019-07-20] MEDS: HYDROCODONE/APAP 5-325MG TABLET GT PRN ×3 (03:29→16:30)
[2019-07-20 04:54] VITALS: BP 117/43
[2019-07-20] MEDS: ACETAMINOPHEN 650 MG/20.3 ML LIQUID UDC GT PRN (05:01)
[2019-07-20 06:51] LABS: BASOPHILS % (AUTO) 0.3 % (0.0-2.0); EOSINOPHILS % (AUTO) 0.5 % (0.0-7.0); HEMATOCRIT 27.2 % (31.2-41.9); HEMOGLOBIN 8.9 g/dL (10.9-14.3); LYMPHOCYTES # (AUTO) 0.6 K/uL (20.0-40.0); LYMPHOCYTES % (AUTO) 14.1 % (20.5-51.5); MEAN CORPUSCULAR HEMOGLOBIN 28.2 uug (24.7-32.8); MEAN CORPUSCULAR HGB CONC 33 g/dL (32.3-35.6); MEAN CORPUSCULAR VOLUME 86.3 fL (75.5-95.3); MONOCYTES # (AUTO) 0.3 K/uL (2.0-10.0); NEUTROPHILS # (AUTO) 3.1 K/uL (1.8-8.9); NEUTROPHILS % (AUTO) 77.1 % (38.5-71.5); PLATELET COUNT (AUTO) 152 K/uL (179-408); RED BLOOD CELL COUNT(AUTO) 3.15 MIL/uL (3.63-4.92)
--- NOTE | 2019-07-20 07:30 | NUR ---
received patient in bed, open eyes, On Oxygen at 2L via nasal canula, saturating 93%. No moaning noted at this time. Afebrile. Gtube intact and patent. Hancock catheter draining with clear yellow urine. Kept clean and comfortable. will continue to monitor.
[2019-07-20 08:00] VITALS: BP 117/59
[2019-07-20] MEDS: CARBIDOPA/LEVODOPA CR 25-100MG TABLET.SA PO SCH ×2 (08:06→20:11)
[2019-07-20] MEDS: FUROSEMIDE 20 MG TABLET GT SCH (08:06)
[2019-07-20] MEDS: ASPIRIN 81 MG TAB.CHEW GT SCH (08:06)
[2019-07-20 08:19] LABS: CARBON DIOXIDE 34 mmol/L (21-32); CHLORIDE 104 mmol/L (98-107); CREATININE 0.5 mg/dL (0.6-1.3); GLUCOSE 118 mg/dL (74-106); LACTATE DEHYDROGENASE 290 U/L (81-234); PHOSPHOROUS 3.3 mg/dL (2.5-4.9); POTASSIUM 3.9 mmol/L (3.5-5.1); UREA NITROGEN, BLOOD 14 mg/dL (7-18)
[2019-07-20 08:23] LABS: FERRITIN 1382 ng/mL (8-252)
[2019-07-20] MEDS: Z GUARD REMEDY PASTE 57 GM TUBE TOP SCH ×2 (09:08→20:11)
[2019-07-20 09:31] LABS: *BILIRUBIN,URIN NEGATIVE (NEGATIVE); *BLOOD, URINE NEGATIVE (NEGATIVE); *CLARITY,URINE CLEAR (CLEAR); *COLOR,URINE YELLOW (YELLOW); *KETONES,URINE NEGATIVE (NEGATIVE); LEUKOCYTE ESTERASE ,URINE NEGATIVE (NEGATIVE); NITRITE, URINE NEGATIVE (NEGATIVE); UGLUCOSE NEGATIVE (NEGATIVE)
--- NOTE | 2019-07-20 10:00 | NUR ---
Patient in bed, noted with saturation going down to 85-86%, patient was placed on Oxygen at 5L via Nasal canula, not tolerating well, saturation still ranging from 87-88%, patient was placed on Non re breather mask at 6L/min, Oxygen went up to 92-94%, Dr. Franks made aware.
[2019-07-20] MEDS ORDERED: FUROSEMIDE 20 MG/2 ML VIAL IV ONE ×2 (11:00→15:00)
[2019-07-20 11:25] VITALS: BP 112/62
[2019-07-20 14:00] VITALS: BP 116/52
--- NOTE | 2019-07-20 14:00 | NUR ---
Patient in bed, patient on Oxygen at 4L via Non Rebreather mask, saturating 92-94%. Will continue to monitor.
[2019-07-20] MEDS: GLUCERNA 1.2 1000ML LIQUID GT PRN (17:45)
--- NOTE | 2019-07-20 17:54 | NUR ---
Patent was placed on 3L via Simple facial mask, tolerated well, saturating 91-93%.
--- NOTE | 2019-07-20 18:34 | NUR ---
Patient in bed, open eyes, On Oxygen at 3L via Simple face mask, saturating 92-94%. constantly moaning, Clyman 5/325mg given x 2. Lasix 20mg IV given x 2 at 11AM and 3PM, Afebrile at this time. Gtube feeding tolerated well. Kept HOB elevated at all times. Hancock catheter draining with Clear yellow Urine. Treatment in Progress on sacrum PS and Left Buttock wound. Kept clean and comfortable. Will Endorse to Oncoming Nurse.
[2019-07-20 20:02] VITALS: BP 140/76
[2019-07-20] MEDS: FLUCONAZOLE 200 MG/NS 100ML IV 100 MG in PREMIXED 1 EACH IV SCH (20:10)
[2019-07-20] MEDS: ENOXAPARIN SODIUM 40 MG/0.4 ML DISP.SYRIN SQ SCH (20:30)
--- NOTE | 2019-07-20 22:20 | NUR ---
Patient is having a profound tachypnea 40-50 BPM. SpO2 is dropping to 85% with a simple mask at [address] Dietrich was notified, ordered Morphine 2mg Q1H PRN for pain and air hunger. Pulse is 112-120.
--- NOTE | 2019-07-20 22:36 | NUR ---
Spoke with son Arsen, gave an update on the condition, Patient has arrangements with [facility] [phone] acct number [phone].
[2019-07-20] MEDS: MORPHINE SULFATE 2 MG/1 ML DISP.SYRIN IV PRN (22:44)
[2019-07-21] MEDS: MORPHINE SULFATE 2 MG/1 ML DISP.SYRIN IV PRN ×5 (00:12→10:23)
[2019-07-21] MEDS: ACETAMINOPHEN 650 MG/20.3 ML LIQUID UDC GT PRN ×2 (00:42→06:42)
[2019-07-21 00:44] VITALS: BP 146/80
[2019-07-21 04:56] VITALS: BP 114/54
--- NOTE | 2019-07-21 05:27 | NUR ---
Tachypnea is improved 20-25/min, Spo1 is 90% on 6L via mask. 4 doses of 2mg Morphine given so far.
[2019-07-21 07:42] LABS: FERRITIN 1557 ng/mL (8-252); LACTATE DEHYDROGENASE 323 U/L (81-234)
[2019-07-21] MEDS: Z GUARD REMEDY PASTE 57 GM TUBE TOP SCH (08:58)
[2019-07-21] MEDS: ASPIRIN 81 MG TAB.CHEW GT SCH (08:58)
[2019-07-21] MEDS: CARBIDOPA/LEVODOPA CR 25-100MG TABLET.SA PO SCH (08:58)
[2019-07-21] MEDS: FUROSEMIDE 20 MG TABLET GT SCH (08:58)
--- NOTE | 2019-07-21 08:59 | NUR ---
unable to use computer to scan patient. examined 6 rights of medication with the patient to prevent medication error.
[2019-07-21 11:52] VITALS: BP 110/45
[2019-07-21] MEDS: MORPHINE SULFATE PF IV DRIP 100 MG in IV DEXTROSE 5% 96 ML IV PRN ×4 (14:20→22:58)
[2019-07-21 16:37] VITALS: BP 110/49
[2019-07-21 20:00] VITALS: BP 124/44
--- NOTE | 2019-07-21 23:40 | NUR ---
Patient at 2320. Morphine drip stopped, 95ml remaining. notified. Son Indio was notified.
--- NOTE | 2019-07-22 02:00 | NUR ---
[facility] has taken the body into its custody.
== END 2019-07-22 02:01 | disposition expired | DRG 871 ==
LOC: ER 08:05 → TELE 11:57 → MED 07-21 16:00
PROVIDERS: ADMIT Hospitalist; ATTEND Internal Medicine
DX: A41.89 Other specified sepsis (principal); U07.1 COVID-19; J12.89 Other viral pneumonia; J96.01 Acute respiratory failure with hypoxia; G92 Toxic encephalopathy; R53.2 Functional quadriplegia; I21.4 Non-ST elevation (NSTEMI) myocardial infarction; I50.33 Acute on chronic diastolic (congestive) heart failure; D68.69 Other thrombophilia; J98.11 Atelectasis; B37.49 Other urogenital candidiasis; N39.0 Urinary tract infection, site not specified; Z51.5 Encounter for palliative care; D64.9 Anemia, unspecified; E66.9 Obesity, unspecified; K21.9 Gastro-esophageal reflux disease without esophagitis; L89.152 Pressure ulcer of sacral region, stage 2; M19.90 Unspecified osteoarthritis, unspecified site; R13.10 Dysphagia, unspecified; Z66 Do not resuscitate; R62.7 Adult failure to thrive; Z79.84 Long term (current) use of oral hypoglycemic drugs; Z87.440 Personal history of urinary (tract) infections; Z88.2 Allergy status to sulfonamides; Z93.1 Gastrostomy status; Z95.1 Presence of aortocoronary bypass graft; Z86.73 Personal history of transient ischemic attack (TIA), and cerebral infarction without residual deficits; E11.9 Type 2 diabetes mellitus without complications; B96.4 Proteus (mirabilis) (morganii) as the cause of diseases classified elsewhere; Z99.81 Dependence on supplemental oxygen; I11.0 Hypertensive heart disease with heart failure; I25.10 Atherosclerotic heart disease of native coronary artery without angina pectoris; F31.9 Bipolar disorder, unspecified; F41.9 Anxiety disorder, unspecified; G20 Parkinson's disease; Z86.011 Personal history of benign neoplasm of the brain; R32 Unspecified urinary incontinence; Z87.891 Personal history of nicotine dependence; Z88.1 Allergy status to other antibiotic agents; E88.09 Other disorders of plasma-protein metabolism, not elsewhere classified; R15.9 Full incontinence of feces; F01.50 Vascular dementia, unspecified severity, without behavioral disturbance, psychotic disturbance, mood disturbance, and anxiety; Z68.26 Body mass index [BMI] 26.0-26.9, adult; R78.89 Finding of other specified substances, not normally found in blood; B95.2 Enterococcus as the cause of diseases classified elsewhere
CPT/HCPCS: 36415; 70030-TC; 71045; 83605; 83615; 83690; 83735; 84100; 84443; 85025; 85610; 85730; 86140; 87040; 87070; 87077; 87086; 87400; 93005; A4663; G0378; J1450; J1650; J1815; J1940; J2185; J2270; J2274; J3490; J7040; J7060; U0003-CS